=== PATIENT | female | born 1965 | race Caucasian/White ===

== ENCOUNTER 2023-10-17 07:55 | Outpatient (AMB) | payer BC, OTHER, SELFPAY ==
[2023-10-17 08:04] VITALS: BP 122/62; PULSE 80; O2SAT 98; BMI 24.8
--- NOTE | 2023-10-17 08:04 | A.OFFPC_ITS ---
Vital Signs 10/17/23 08:04 Height 5 ft 2.5 in Weight 138 lb BMI 24.8 BP 122/62 Blood Pressure Location Lt brachial Position Sitting Pulse 80 Pulse Source Pulse Oximeter Pulse Oximetry (%) 98 Oxygen Delivery Method Room Air Intake Visit Reasons: PE/Last seen with Tyrone, Peanut better allergy Allergies Bees Allergy (Unknown, Uncoded 10/17/23 08:15) Anaphylaxis Fluoride Allergy (Unknown, Uncoded 10/17/23 08:15) Rash Sulfa Allergy (Unknown, Uncoded 10/17/23 08:15) Anaphylaxis Medication List - Last Reconciled 10/17/23 by Zacarias Ha PA-C pregabalin (Lyrica) 300 mg PO BEDTIME Tobacco use date assessed: 10/17/23 Dental Screening Dental Screen Date: 10/17/23 Did you have a dental visit in the last 12 months?: Yes Did you have a dental problem in the last 6 months where you did not have access to dental care?: No Was dental information given to patient?: Patient has dentist HPI PE/Last seen with Tyrone HPI Details Patient is a 58-year-old female here today for an annual physical. This is the 1st time I am meeting this 58-year-old female with a past medical history significant for chronic cervical spine pain. Concern--> reports over the last few years having some issues with joint pains in her lower extremities though attributes this to a peanut butter allergy. Has stopped eating peanut butter and her symptoms have resolved completely. .. Cervical disc disease: She was involved in a work-related incident 2006 in [place] injuring her neck. She is status post multiple neck surgeries. She has been Lyrica 100 mg t.i.d. since 2007. She reports good pain relief with this medication. She was on worker's comp in [place] whom was managing and paying for the medication. She now needs PCP to manage the medication as she now lives in [place]. Former smoker: Quit smoking in 1999, she reports smoking for 20 years. She is interested in lung cancer screening Mammogram: declines any further mammograms, does her own home self-breast exams. 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 Colon cancer screening: Did cologaurd guard in 2019 which was negative, she is willing to repeat Cologuard Vaccines: Up-to-date with tetanus vaccine, declines flu, COVID, shingles, pneumonia, PFSH Surgical History History of kidney surgery History of carpal tunnel surgery H/O neck surgery Social History (Updated 10/17/23 @ 08:24 by Zacarias Ha PA-C) Housing: House Alcohol intake: current Alcohol intake frequency: holidays/special occasions only Alcohol type: beer Patient Tobacco Use Status: Former Tobacco user Quit Date: 1999 Tobacco use type: Cigarette Years Smoked: pt states former tobacco user 20 yrs ago, current marijuanna use e-Cigarette/Vaping Use: Never Used Second Hand Smoke Exposure: Yes Substance Use Type: Marijuana service: No Current occupational status: retired Current occupation: [employer]- injury Cognitive needs: No Hearing needs: No Vision needs: No Questionnaire PHQ-9 Over the last 2 weeks, how often have you been bothered by any of the following problems? 1. Little interest or pleasure in doing things: not at all 2. Feeling down, depressed, or hopeless: not at all 3. Trouble falling or staying asleep, or sleeping too much: not at all 4. Feeling tired or having little energy: not at all 5. Poor appetite or overeating: not at all 6. Feeling bad about yourself - or that you are a failure or have let yourself or your family down: not at all 7. Trouble concentrating on things, such as reading the newspaper or watching television: not at all 8. Moving or speaking so slowly that other people could have noticed. Or the opposite - being so fidgety or restless that you have been moving around a lot more than usual: not at all 9. Thoughts that you would be better off or of hurting yourself in some way: not at all Total score: 0 Depression Screening Interpretation: Negative Depression Screening Done: Yes 13125 - PHQ-9 Billing: Yes Source: Developed by Drs. Avi Pulliam, Ni Espana, Don Bates and colleagues, with an educational guy from [employer]. Thrive Questionnaire Date Thrive assessed: 10/17/23 I am a: Patient What is your living situation today?: I have a steady place to live Within the past 12 months, did the food you bought not last and you didn't have the money to get more?: Never true Within the past 12 months, did you worry whether your food would run out before you got money to buy more?: Never true Do you have trouble paying for medicines?: No Do you have trouble getting transportation to medical appointments?: No Do you have trouble paying your heating and electricity bill?: No Do you have trouble taking care of your child, family member or friend?: No Do you have trouble with day-to-day activities such as bathing, preparing meals, shopping, managing finances, etc.?: No Are you currently unemployed and looking for a job?: No Are you interested in more education?: No Currently or been in a relationship where the following occur: no concerns reported THRIVE Score: 0 AUDIT C Alcohol Use Questionnaire (AUDIT-C) 1. How often do you have a drink containing alcohol?: 2-3 times a week 2. How many drinks containing alcohol do you have on a typical day when you are drinking?: 3 or 4 3. How often do you have six or more drinks on one occasion?: Never Total Score: 4 Score Reviewed/Action Taken: No LUIZ-7 AMB Questionnaire LUIZ-7 Date LUIZ - 7 assessed: 10/17/23 Feeling nervous, anxious, or on edge: 0 = Not at all Not being able to stop or control worryin = Not at all Worrying too much about different things: 0 = Not at all Trouble relaxin = Not at all Being so restless that it is hard to sit still: 0 = Not at all Becoming easily annoyed or irritable: 0 = Not at all Feeling afraid as if something awful might happen: 0 = Not at all Total LUIZ-7 score (0-4 normal; 5-9 mild; 10-14 moderate; 15-21 severe): 0 Source: Developed by Drs. Avi Pulliam, Ni Espana, Don Bates and colleagues, with an educational guy from [employer]. LUIZ-7 Assessment Billing LUIZ-7 Assessment Tool: LUIZ-7 Assessment 64085 Review of Systems Const Denies body aches, Denies chills, Denies excessive sweating, Denies fatigue, Denies fever(s) and Denies headache(s) Eyes Denies blurry vision ENT Denies dysphagia, Denies vertigo, Denies dizziness, Denies headache(s), Denies hearing loss and Denies tinnitus Card Denies chest pain, Denies chest pain with activity, Denies syncope, Denies irregular heart rhythm and Denies dyspnea Resp Denies chest congestion, Denies cough, Denies hemoptysis, Denies dyspnea and Denies wheezing GI Denies abdominal pain, Denies melena, Denies hematochezia, Denies coffee ground emesis, Denies dysphagia, Denies diarrhea, Denies nausea and Denies vomiting Denies urinary frequency, Denies dysuria, Denies urinary hesitancy and Denies urinary urgency Musc Denies arthralgias, Denies limited range of motion, Denies muscle cramps and Denies muscle weakness Skin/Breast Denies rash and Denies skin ulcer Neuro Denies Abnormal speech present, Denies confusion, Denies vertigo, Denies dizziness, Denies syncope, Denies headache(s), Denies memory loss and Denies seizure-like activity Psych Denies anxiety, Denies confusion, Denies depression, Denies memory loss, Denies panic attacks and Denies paranoia Endo Denies excessive sweating, Denies fatigue, Denies flushing, Denies polydipsia and Denies polyuria Aller/Immun Denies wheezing Physical exam (Primary Care) Vital Signs: Last Vital Signs Pulse 80 10/17/23 08:04 BP 122/62 10/17/23 08:04 Pulse Ox 98 10/17/23 08:04 Oxygen Delivery Method Room Air 10/17/23 08:04 BMI result Body Mass Index 24.8 Tobacco/Smoking Status: Tobacco use Status Tobacco use date assessed 10/17/23 10/17/23 08:11 Patient Tobacco Use Status Former Tobacco user 10/17/23 08:11 Tobacco use type Cigarette 10/17/23 08:11 e-Cigarette/Vaping Use Never Used 10/17/23 08:11 PHQ-9: PHQ-9 Score PHQ-9: Total score 0 10/17/23 08:11 Depression Screening Interpretation: Negative Thrive Assessment: Date of Thrive Assessment Date Thrive assessed 10/17/23 10/17/23 08:11 Currently or been in a relationship where the following occur: no concerns reported Const General: cooperative, comfortable, no acute distress, alert and awake; No confusion Orientation/consciousness: oriented to person, oriented to place, patient oriented x3 and No confusion HENMT Head: Yes normocephalic Ears: external ears normal and TM's normal bilaterally Face and sinus: No sinus tenderness Mouth: Normal oral and palatal mucosa present and tongue normal Teeth and gingiva: dentition normal and gingiva normal Throat: Yes posterior oropharynx normal, Yes tonsils normal and Yes uvula midline Eyes Conjunctivae: conjunctivae normal Sclerae: sclerae normal Pupils: Equal, round and reactive pupils present EOM: EOMs intact bilaterally Direct Ophthalmoscopy: No no photophobia Neck Neck: Yes no lymphadenopathy, No tender and Yes no JVD Thyroid: Thyroid normal Carotids: no bruits Chest Chest palpation & inspection: no tenderness Resp Effort & Inspection: normal respiratory effort, no audible wheezes, not labored and no stridor Auscultation: no crackles, no rales, no rhonchi and no wheezes Cardio Jugular venous distension: no JVD Rate: regular rate, not bradycardic and not tachycardic Rhythm: regular rhythm Bruits: no carotid bruits Peripheral pulses: Peripheral pulses 2+ throughout GI Inspection: Yes normal to inspection, No abdominal wall ecchymosis and No visible herniation Palpation (GI): Soft to palpation, nontender, no guarding, not rigid and No hepatosplenomegaly present Auscultation: normoactive bowel sounds General: Yes no CVA tenderness Back/Spine/Pelvis Back: no CVA tenderness and No back tenderness Cervical Spine: cervical ROM normal Thoracic/Lumbar Spine: thoracic and lumbar spine normal to inspection, straight leg raise negative bilaterally, No thoraco-lumbar ROM limited and No lumbar spinal tenderness Skin Lesions: no lesions Rashes: no rashes Wounds: no wounds Neuro General: oriented to person, oriented to place, patient oriented x3, CN's II-XI intact bilaterally and No confusion Cranial nerves: Yes Equal, round and reactive pupils present and Yes Normal accommodation reflex present Cognition (Neuro): normal cognition Speech: No Abnormal speech present Gait exam (Neuro): Normal gait present Motor exam (neuro): 5/5 motor strength present throughout Extrem Right upper extremity: full ROM; no cyanosis Left upper extremity: full ROM; no cyanosis Right lower extremity: no edema Left lower extremity: no edema Psych Appearance: grossly normal Mental Status: mental status grossly normal Affect: normal affect Attitude: cooperative Thought process: Normal thought process present Assessment and Plan Assessment & Plan (1) Adult general medical exam: Code(s): Z00.00 - Encounter for general adult medical examination without abnormal findings (2) Cervical spine disease: Code(s): M48.9 - Spondylopathy, unspecified Plan: Cervical disc disease with status post multiple surgeries from work-related injury in 2006 in [place]. Continues on Lyrica 300 mg daily since 2007. (3) Colonoscopy refused: Code(s): Z53.20 - Procedure and treatment not carried out because of patient's decision for unspecified reasons Plan: Willing to do Cologuard (4) Screening for diabetes mellitus (DM): Code(s): Z13.1 - Encounter for screening for diabetes mellitus (5) History of smoking: Code(s): Z87.891 - Personal history of nicotine dependence Plan: As per HPI was a smoker for 20 years. Quit smoking nearly 20 years ago. She would like lung cancer screening Orders: Orders Comprehensive [place]. Panel Fast Today Z13.1 - Encounter for screening for diabetes mellitus Referrals Thoracic Surgery Referral Z87.891 - Personal history of nicotine dependence Cologuard Test Z12.11 - Encounter for screening for malignant neoplasm of colon, Z87.891 - Personal history of nicotine dependence Medications: Changed From pregabalin (Lyrica) 100 mg PO Q8H M48.9 - Spondylopathy, unspecified To pregabalin (Lyrica) 100 mg PO Q8H 90 days 270 caps 1RF M48.9 - Spondylopathy, unspecified Coding Level of Care Code Est Pt Prev Care 40-64y(85977) Diagnoses Adult general medical exam Z00.00 Cervical spine disease M48.9 Colonoscopy refused Z53.20 Screening for diabetes mellitus (DM) Z13.1 History of smoking Z87.891 Additional Codes LUIZ-7 Assessment Billing - LUIZ-7 Assessment Tool: LUIZ-7 Assessment 06366 ([id number])
== END 2023-10-17 08:39 | disposition home or self-care (01) ==
PROVIDERS: Visit Provider Physician Assistant
DX: Z00.00 Encounter for general adult medical examination without abnormal findings (principal); M48.9 Spondylopathy, unspecified; Z53.20 Procedure and treatment not carried out because of patient's decision for unspecified reasons; Z13.1 Encounter for screening for diabetes mellitus; Z87.891 Personal history of nicotine dependence
CPT/HCPCS: 99396

== ENCOUNTER 2023-11-24 10:19 | Outpatient (AMB) | payer BC, OTHER, MEDICAID, SELFPAY ==
--- NOTE | 2023-11-24 10:32 | MHC.OFFVIS ---
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 No complaints. Last Pap/HPV was many years ago Last Mammogram was many years ago No previous screening colonoscopy PFSH Surgical History History of kidney surgery History of carpal tunnel surgery H/O neck surgery Social History Housing: House Alcohol intake: current Alcohol intake frequency: holidays/special occasions only Alcohol type: beer Patient Tobacco Use Status: Former Tobacco user Quit Date: 1999 Tobacco use type: Cigarette Years Smoked: pt states former tobacco user 20 yrs ago, current marijuanna use e-Cigarette/Vaping Use: Never Used Second Hand Smoke Exposure: Yes Substance Use Type: Marijuana Patient : No service: No Current occupational status: retired Current occupation: [employer]- injury Cognitive needs: No Hearing needs: No Vision needs: No Female Reproductive History Menstrual Age of Menarche: 14 Duration of menses: 3-5 days Age of menopause: 45 Total pregnancies: 1 Full term: 1 Number of Living Children: 1 History of STI: No Review of Systems Const All systems reviewed & are unremarkable except as noted in HPI and below Card Reports as per HPI Resp Reports as per HPI GI Reports as per HPI and Reports no additional complaints Reports as per HPI Physical Exam Const General: cooperative, healthy appearing and comfortable Chest Chest palpation & inspection: normal inspection of the chest and normal palpation of entire chest wall Breast/axilla inspection: normal inspection of the breasts and normal inspection of the axillae Breast/axilla palpation: normal palpation of the breasts, normal palpation of the axillae and no axillary lymphadenopathy Resp Effort & Inspection: normal respiratory effort Auscultation: clear to auscultation bilaterally Percussion: percussion normal Cardio Palpation: normal PMI Rate: regular rate Rhythm: regular rhythm Heart sounds: no murmurs and no rubs Peripheral pulses: Peripheral pulses 2+ throughout GI Inspection: Yes normal to inspection Palpation (GI): Soft to palpation, nontender, no guarding, not rigid and No hepatosplenomegaly present Percussion: Yes normal to percussion Auscultation: normal bowel sounds Rectal Exam - Female: deferred General: Yes bladder normal to palpation External Female Exam: No lesion Speculum Exam - Vagina: normal appearance of the vagina, normal palpation, normal vaginal discharge and not erythematous Speculum Exam - Cervix: normal appearance of the cervix and normal palpation Bimanual exam- vagina & uterus: normal bimanual exam, normal palpation, uterine size normal, bladder normal to palpation, consistency normal and normal palpation Bimanual Exam- Adnexa, other: normal adnexae, no masses and no tenderness Assessment & Plan Assessment & Plan (1) Well woman exam: Code(s): Z01.419 - Encounter for gynecological examination (general) (routine) without abnormal findings Plan: Co testing done. Counseled the patient about the recommended dietary allowance of 1200 mg of Calcium & 600 IU of vitamin D. Screening mammogram recommended, discussed with the patient the benefits, sensitivity, specificity and false-positive false-negative rate of screening mammogram and it is impact on early detection, prognosis and decrease in mortality from breast cancer, the patient verbalized understanding, does not want a mammogram order placed and would like to think about it. Instructions given the patient to call and schedule screening mammogram. The patient was referred to GI for screening colonoscopy . The patient was instructed to perform monthly self-breast exams and schedule annual exam in a year. All questions answered and the patient verbalized understanding. Orders: Referrals Gastroenterology Referral Z12.11 - Encounter for screening for malignant neoplasm of colon Coding Level of Care Code New Pt Prev Care 40-64y(74247) Diagnoses Well woman exam Z01.419
[2023-11-24 10:35] VITALS: BP 120/82; BMI 28.0
== END 2023-11-24 11:24 | disposition home or self-care (01) ==
PROVIDERS: PCP Physician Assistant; Visit Provider Obstetrics & Gynecology
DX: Z01.419 Encounter for gynecological examination (general) (routine) without abnormal findings (principal)
CPT/HCPCS: 99386

== ENCOUNTER 2023-11-24 10:19 | Outpatient (REF) | payer BC, OTHER, MEDICAID, SELFPAY ==
[2023-11-29 12:38] LABS: HPV mRNA E6/E7 rflx Not Detected (Not Detected)
== END 2023-11-24 10:20 | disposition home or self-care (01) ==
LOC: HO.LNP 10:19
PROVIDERS: PCP Physician Assistant; Visit Provider Obstetrics & Gynecology
DX: Z01.419 Encounter for gynecological examination (general) (routine) without abnormal findings (principal); Z11.51 Encounter for screening for human papillomavirus (HPV)
CPT/HCPCS: 87624; 88142

== ENCOUNTER 2024-02-09 08:06 | Outpatient (AMB) | payer BC, OTHER, SELFPAY ==
--- NOTE | 2024-02-09 08:14 | MHC.OFFVIS ---
Vital Signs 02/09/24 08:22 Height 5 ft 2 in Weight 131 lb 13.383 oz BMI 24.1 BP 112/54 L Blood Pressure Location Lt brachial Position Sitting Pulse 76 Pulse Source Pulse Oximeter Pulse Oximetry (%) 97 Oxygen Delivery Method Room Air Intake Visit Reasons: positive Cologuard test Intake Note: Marce presents in office today for an initial visit. CC; PCP referred pt to GI for positive cologuard test. Pt denies any sx or additional significant concerns at this time. Tree Doctor Required: No Allergies Peanut Butter Allergy (Unknown, Verified 02/09/24 08:21) Anaphylaxis Bees Allergy (Unknown, Uncoded 11/24/23 10:32) Anaphylaxis Fluoride Allergy (Unknown, Uncoded 11/24/23 10:32) Rash Sulfa Allergy (Unknown, Uncoded 11/24/23 10:32) Anaphylaxis HPI HPI positive Cologuard test: Details: 58-year-old female here for preprocedural meeting to discuss a screening colonoscopy in the context of a positive Cologuard. She is referred by Zacarias Ha Cervical degenerative disc disease Gout History of smoking * SURGICAL HISTORY Kidney surgery Carpal tunnel surgery - B Anterior/posterior discectomy C4-T1 C section * ALLERGIES Sulfa Fluoride Bees Peanut butter swelling * Config ConsultantsTECH LABS: none TODAY'S VISIT This is first colonoscopy. She denies any bowel or upper GI problems. There are no prior problems with anesthesia or sedation. She denies any cardiac or respiratory problems.. No ID problems. No known FHX crc or polyps. [facility] Medical History (Updated 02/09/24 @ 17:03 by MIGUEL Alanis) Well woman exam Adult general medical exam Colonoscopy refused Cervical cancer screening Cervical spine instability Surgical History (Updated 02/09/24 @ 17:03 by MIGUEL Alanis) History of section History of kidney surgery History of carpal tunnel surgery H/O neck surgery Social History Housing: House Alcohol intake: current Alcohol intake frequency: holidays/special occasions only Alcohol type: beer Patient Tobacco Use Status: Former Tobacco user Tobacco use type: Cigarette Years Smoked: pt states former tobacco user 20 yrs ago, current marijuanna use e-Cigarette/Vaping Use: Never Used Second Hand Smoke Exposure: Yes Substance Use Type: Marijuana service: No Current occupational status: retired Current occupation: [employer]- injury Cognitive needs: No Hearing needs: No Vision needs: No Female Reproductive History Menstrual Age of Menarche: 14 Review of Systems Const Denies fatigue, Denies fever(s), Denies night sweats, Denies poor appetite and Denies weight loss ENT Reports Normal hearing present, Denies dental pain, Denies dysphagia, Denies hearing loss, Denies mouth pain, Denies odynophagia, Denies throat swelling, Denies tongue swelling and Reports other (Dentition adequate) Card Reports no additional complaints Resp Reports no additional complaints GI Details: Denies abdominal pain, Denies melena, Denies bloating, Denies hematochezia, Denies constipation, Denies GI cramping, Denies dysphagia, Denies excessive flatus, Denies early satiety, Denies heartburn, Denies diarrhea, Denies nausea, Denies odynophagia, Denies vomiting and Denies hematemesis Skin/Breast Denies pruritus, Denies lesions, Denies rash and Denies jaundice Neuro Reports Normal hearing present and Denies Abnormal speech present Endo Denies fatigue Aller/Immun Denies throat swelling and Denies tongue swelling Physical Exam Vital Signs: Last Vital Signs Pulse 76 02/09/24 08:22 BP 112/54 L 02/09/24 08:22 Pulse Ox 97 02/09/24 08:22 Oxygen Delivery Method Room Air 02/09/24 08:22 BMI result Body Mass Index 24.1 Const General: cooperative, no acute distress, well developed and well groomed Nutritional Appearance: average body habitus and well nourished Orientation/consciousness: oriented to person, oriented to place and oriented to time Limitations: No language barrier HEENT Head: Yes normocephalic and Yes atraumatic Eyes General: appearance normal, both eyes and all related structures Pupils: Equal, round and reactive pupils present Neck Neck: Yes normal visual inspection and Yes no lymphadenopathy Thyroid: Thyroid normal Resp Effort & Inspection: normal respiratory effort and able to speak in complete sentences Auscultation: clear to auscultation bilaterally Cardio Rate: regular rate Rhythm: regular rhythm Heart sounds: Normal, physiologic split S2 sound present Peripheral pulses: radial pulses present and posterior tibial pulses present GI Inspection: No distended and No Abdominal panniculus present Palpation (GI): Soft to palpation, nontender, no guarding, not rigid and No hepatosplenomegaly present Percussion: Yes normal to percussion Auscultation: normal bowel sounds Rectal Exam - Female: deferred Abdomen image: 1. surgical scar Skin General skin exam: no rashes or lesions noted, turgor normal, skin not dry, no jaundice, No spider nevi and no striae Rashes: no rashes Nails: normal Neuro General: oriented to person, oriented to place and oriented to time Cranial nerves: Yes Equal, round and reactive pupils present and Yes Normal hearing present Speech: No Abnormal speech present Extrem General: Yes normal to inspection, No clubbing, No cyanosis and No edema Psych Appearance: grossly normal and well kempt Mental Status: mental status grossly normal Speech and movement: Normal speech and movement present Affect: normal affect Attitude: cooperative Thought process: Normal thought process present and not confabulating Thought content: Normal thought content present Insight: Good insight present (Psych) Judgement: Good judgement present (Psych) Assessment & Plan Assessment & Plan (1) Positive colorectal cancer screening using Cologuard test: Code(s): R19.5 - Other fecal abnormalities Category: Medical (2) Pre-op examination: Code(s): Z01.818 - Encounter for other preprocedural examination Category: Medical Plan This is first colonoscopy. She denies any bowel or upper GI problems. There are no prior problems with anesthesia or sedation. She denies any cardiac or respiratory problems.. No ID problems. No known FHX crc or polyps. Orders: Orders Comprehensive Met. Panel Today R19.5 - Other fecal abnormalities, Z01.818 - Encounter for other preprocedural examination Colonoscopy - GI Use Only Today R19.5 - Other fecal abnormalities, Z01.818 - Encounter for other preprocedural examination Complete Blood Count Auto Diff Today R19.5 - Other fecal abnormalities, Z01.818 - Encounter for other preprocedural examination Coding Level of Care Code New Pt Level 3 (58886) Diagnoses Positive colorectal cancer screening using Cologuard test R19.5 Pre-op examination Z01.818
[2024-02-09 08:22] VITALS: BP 112/54; PULSE 76; O2SAT 97; BMI 24.1
== END 2024-02-09 08:44 | disposition home or self-care (01) ==
PROVIDERS: PCP Physician Assistant; Visit Provider Nurse Practitioner
DX: R19.5 Other fecal abnormalities (principal); Z01.818 Encounter for other preprocedural examination
CPT/HCPCS: 99203

== ENCOUNTER 2024-02-09 08:06 | Outpatient (REF) | payer BC, OTHER, SELFPAY ==
[2024-02-09 09:43] LABS: Eosinophils Absolute Auto 0.1 X10*3/uL (0.0-0.4); Eosinophils Percent Auto 2.1 % (0-4); Hematocrit 33.6 % (37.0-47.0); Hemoglobin 11.9 g/dl (12.0-16.0); Imm Gran Abs Auto 0.02 X10*3/uL (0.00-0.03); Imm Gran Pct Auto 0.4 % (0.0-0.4); Lymphocytes Absolute Auto 0.8 X10*3/uL (1.2-4.9); Lymphocytes Percent Auto 16.9 % (20-40); MANUAL DIFF FLAG SCAN; Mean Corpuscular HGB Conc 35.4 g/dl (31.0-35.0); Mean Corpuscular Hemoglobin 31.8 pg (27.0-33.0); Mean Corpuscular Volume 89.8 fL (80.0-98.0); Mean Platelet Volume 9.7 fL (9.4-12.3); Monocytes Absolute Auto 1.3 X10*3/uL (0.1-1.2); Monocytes Percent Auto 26.1 % (2-11); Neutrophils Absolute Auto 2.7 x10*3/uL (2.0-8.3); Neutrophils Percent Auto 54.5 % (45-73); Platelet Count 144 X10*3/uL (160-400); Red Blood Count 3.74 X10*6/uL (4.20-5.50); SCAN SMEAR FLAG 1; White Blood Count 4.9 X10*3/uL (4.8-10.8)
[2024-02-09 10:19] LABS: Alanine Aminotransferase 32 U/L (0-31); Albumin Level 4.2 g/dL (3.5-5.0); Alkaline Phosphatase 191 U/L (39-117); Anion Gap 11 (12-20); Aspartate Amino Transferase 62 U/L (5-31); Bilirubin Total 0.7 mg/dL (0.0-1.0); Blood Urea Nitrogen 5 mg/dL (9-16); Calcium 9.6 mg/dL (8.4-10.2); Carbon Dioxide 25 mmol/L (22-29); Chloride 94 mmol/L (96-108); Estimated Glomerular Filt Rate > 60; Glucose Random 95 mg/dL (60-115); Potassium 4.7 mmol/L (3.3-5.1); Sodium 125 mmol/L (135-145)
[2024-02-09 10:36] LABS: SLIDE REVIEW VERIFIED
== END 2024-02-09 08:07 | disposition home or self-care (01) ==
LOC: HO.LAB 08:06
PROVIDERS: PCP Physician Assistant; Visit Provider Nurse Practitioner
DX: Z01.818 Encounter for other preprocedural examination (principal); R19.5 Other fecal abnormalities
CPT/HCPCS: 36415; 80053; 85025

== ENCOUNTER 2024-06-14 08:50 | Outpatient (AMB) | payer BC, OTHER, SELFPAY ==
--- NOTE | 2024-06-14 08:55 | MHC.PC.OV ---
Vital Signs 06/14/24 08:56 Height 5 ft 2 in Weight 126 lb 8 oz BMI 23.1 BP 136/66 Blood Pressure Location Lt brachial Position Sitting Pulse 78 Pulse Source Pulse Oximeter Pulse Oximetry (%) 95 Oxygen Delivery Method Room Air Intake Visit Reasons: f/u cervical spine issue Intake Note: Patient is here to follow up on Cervical spine issues. Requesting for epi-pen for Bee allergy. Pt decline flu shot today. Switchboard Clerk Required: No Digital Asset Specialist: Not Required per policy Accompanied by: Self / Same As Patient Allergies Peanut Butter Allergy (Unknown, Verified 06/14/24 09:01) Anaphylaxis Bees Allergy (Unknown, Uncoded 06/14/24 09:01) Anaphylaxis Fluoride Allergy (Unknown, Uncoded 06/14/24 09:01) Rash Sulfa Allergy (Unknown, Uncoded 06/14/24 09:01) Anaphylaxis Medication List - Last Reconciled 06/14/24 by Zacarias Ha PA-C pregabalin (Lyrica) 100 mg PO Q8H 90 days sod sulf-pot chloride-mag sulf 1.479-0.188- 0.225 gram (Sutab) PO PER PKG DIR for colonoscopy prep Tobacco use date assessed: 06/14/24 Dental Screening Dental Screen Date: 10/17/23 HPI f/u cervical spine issue HPI Details Patient is a 58-year-old female here today for a follow-up visit. This is the 2nd time I am meeting this 58-year-old female with a past medical history significant for chronic cervical spine pain. Concern--> reports over the last few years having some issues with joint pains in her lower extremities though attributes this to a peanut butter allergy. Has stopped eating peanut butter and her symptoms have resolved completely. She does report having an anaphylactic reaction to bee stings in his interested in getting an EpiPen to have for emergencies .. Cervical disc disease: She was involved in a work-related incident 2006 in [place] injuring her neck. She is status post multiple neck surgeries. She has been Lyrica 100 mg t.i.d. since 2007. She reports good pain relief with this medication. She was on [employer] in [place] whom was managing and paying for the medication. He continues on Lyrica 100 mg b.i.d. with good effect on reducing her pain. Former smoker: Quit smoking in 1999, she reports smoking for 20 years. She is interested in lung cancer screening. Positive Cologuard- patient now followed by [facility] in his due for a colonoscopy this month. [facility] Medical History (Updated 06/14/24 @ 11:04 by Zacarias Ha PA-C) Well woman exam Adult general medical exam Colonoscopy refused Cervical cancer screening Cervical spine instability Surgical History History of section History of kidney surgery History of carpal tunnel surgery H/O neck surgery Social History Housing: House Alcohol intake: current Alcohol intake frequency: holidays/special occasions only Alcohol type: beer Patient Tobacco Use Status: Former Tobacco user Tobacco use type: Cigarette Years Smoked: pt states former tobacco user 20 yrs ago, current marijuanna use e-Cigarette/Vaping Use: Never Used Second Hand Smoke Exposure: Yes Substance Use Type: Marijuana service: No Current occupational status: retired Current occupation: [employer]- injury Cognitive needs: No Hearing needs: No Vision needs: No Female Reproductive History Menstrual Age of Menarche: 14 Questionnaire Thrive Questionnaire Date Thrive assessed: 10/17/23 Are you currently unemployed and looking for a job?: I choose not to answer this question LUIZ-7 AMB Questionnaire LUIZ-7 Date LUIZ - 7 assessed: 10/17/23 Source: Developed by Drs. Avi Pulliam, Ni Espana, Don Bates and colleagues, with an educational guy from [employer]. Review of Systems Const Denies headache(s) Eyes Denies loss of vision ENT Denies vertigo, Denies dizziness, Denies headache(s) and Denies sore throat Card Denies chest pain, Denies leg edema and Denies lightheadedness Resp Denies cough, Denies hemoptysis and Denies wheezing GI Denies abdominal pain, Denies melena, Denies constipation, Denies diarrhea and Denies vomiting Denies urinary frequency, Denies dysuria and Denies urinary urgency Musc Denies arthralgias, Denies joint swelling, Denies numbness and Denies tingling Neuro Denies Abnormal speech present, Denies behavioral changes, Denies vertigo, Denies dizziness, Denies headache(s), Denies loss of vision, Denies memory loss, Denies numbness and Denies tingling Psych Denies anxiety, Denies behavioral changes, Denies depression, Denies memory loss and Denies panic attacks Mohsen/Lymph Denies easy bleeding and Denies easy bruising Aller/Immun Denies wheezing Physical exam (Primary Care) Vital Signs: Last Vital Signs Pulse 78 06/14/24 08:56 BP 136/66 06/14/24 08:56 Pulse Ox 95 06/14/24 08:56 Oxygen Delivery Method Room Air 06/14/24 08:56 BMI result Body Mass Index 23.1 Tobacco/Smoking Status: Tobacco use Status Tobacco use date assessed 06/14/24 06/14/24 09:00 Patient Tobacco Use Status Former Tobacco user 06/14/24 09:00 Tobacco use type Cigarette 06/14/24 09:00 e-Cigarette/Vaping Use Never Used 06/14/24 09:00 Thrive Assessment: Date of Thrive Assessment Date Thrive assessed 10/17/23 06/14/24 09:00 Const General: healthy appearing, no acute distress, alert and awake Nutritional Appearance: well nourished Orientation/consciousness: oriented to person, oriented to place and oriented to time HENMT Ears: TM's normal bilaterally General nose exam: Normal nasal mucous membranes and turbinates present Eyes Conjunctivae: conjunctivae normal Sclerae: sclerae normal Pupils: Equal, round and reactive pupils present Neck Neck: Yes no lymphadenopathy and Yes no JVD Thyroid: Thyroid normal Carotids: no bruits Resp Effort & Inspection: normal respiratory effort and not tachypneic Auscultation: no crackles, no rales, no rhonchi and no wheezes Cardio Rate: regular rate Rhythm: regular rhythm Heart sounds: no murmurs and normal S1 and S2 GI Palpation (GI): Soft to palpation, nontender, no hepatomegaly and no splenomegaly Auscultation: normal bowel sounds Skin General skin exam: no rashes or lesions noted and dry skin Neuro General: oriented to person, oriented to place and oriented to time Cranial nerves: Yes Equal, round and reactive pupils present Speech: No Abnormal speech present Gait exam (Neuro): Normal gait present Motor exam (neuro): no tremor noted Extrem Right upper extremity: full ROM Left upper extremity: full ROM Right lower extremity: full ROM; no edema Left lower extremity: full ROM; no edema Psych Mental Status: mental status grossly normal Speech and movement: Normal speech and movement present Affect: normal affect Attitude: cooperative Thought process: Normal thought process present Coding Level of Care Code Est Pt Level 4 (51457) Diagnoses Cervical disc disorder M50.90 Elevated liver enzymes R74.8 Positive colorectal cancer screening using Cologuard test R19.5 Anemia due to other cause, not classified D64.89 Anemia type: other cause Other causes of anemia: other cause, not classified Anaphylaxis, sequela T78.2XXS Encounter type: sequela Assessment & Plan Assessment & Plan (1) Cervical disc disorder: Code(s): M50.90 - Cervical disc disorder, unspecified, unspecified cervical region Category: Medical Plan: Patient reports her pain is well controlled with current dose of Lyrica. Will continue to follow q.6 months. (2) Elevated liver enzymes: Code(s): R74.8 - Abnormal levels of other serum enzymes Category: Medical Plan: Most recent labs showing slightly elevated liver enzymes. She reports she did have liver disease in the past and found out she had a peanut allergy. Will consider ultrasound liver if liver enzymes continue to remain elevated. (3) Positive colorectal cancer screening using Cologuard test: Code(s): R19.5 - Other fecal abnormalities Category: Medical Plan: Patient now followed by gastroenterology. She is due for colonoscopy this month. (4) Anemia: Code(s): D64.9 - Anemia, unspecified Category: Medical Qualifiers: Anemia type: other cause Other causes of anemia: other cause, not classified Qualified Code(s): D64.89 - Other specified anemias Plan: Noted slight anemia on most recent labs. Of note patient does have 1 functioning kidney. Will check iron, B12 folate. 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 She would like an EpiPen in case of a anaphylactic emergency. Orders: Orders Comprehensive [facility]. Panel Fast Today Z13.1 - Encounter for screening for diabetes mellitus Vitamin B12 and Folate Today D64.9 - Anemia, unspecified, E53.8 - Deficiency of other specified B group vitamins Complete Blood Count no Diff Today D64.9 - Anemia, unspecified IRON PROFILE Today D50.9 - Iron deficiency anemia, unspecified, D64.9 - Anemia, unspecified Medications: New epinephrine (EpiPen 2-Tushar) for 2 doses 0.3 mg (0.3 mL) IM ONCE PRN 2 ea 0RF anaphylaxis 30 days T78.2XXS - Anaphylactic shock, unspecified, sequela Refilled pregabalin (Lyrica) 100 mg PO Q8H 270 caps 1RF 90 days M48.9 - Spondylopathy, unspecified
[2024-06-14 08:56] VITALS: BP 136/66; PULSE 78; O2SAT 95; BMI 23.1
== END 2024-06-14 09:18 | disposition home or self-care (01) ==
PROVIDERS: PCP Physician Assistant; Visit Provider Physician Assistant
DX: M50.90 Cervical disc disorder, unspecified, unspecified cervical region (principal); R74.8 Abnormal levels of other serum enzymes; R19.5 Other fecal abnormalities; D64.89 Other specified anemias; T78.2XXS Anaphylactic shock, unspecified, sequela

== ENCOUNTER → 2024-06-14 08:50 | Outpatient (BNVA) | payer BC, OTHER, SELFPAY | PROVIDERS: PCP Physician Assistant; Visit Provider Physician Assistant ==

== ENCOUNTER 2024-06-27 08:00 | Outpatient (REF) | payer BC, MEDICARE, SELFPAY ==
[2024-06-27 09:46] LABS: Anion Gap 12 (12-20); Carbon Dioxide 26 mmol/L (22-29); Chloride 97 mmol/L (96-108); Potassium 4.2 mmol/L (3.3-5.1); Sodium 131 mmol/L (135-145)
== END 2024-06-27 08:01 | disposition home or self-care (01) ==
LOC: HO.LAB 08:00
PROVIDERS: Absent Provider Physician Assistant; PCP Physician Assistant; Visit Provider Nurse Practitioner
DX: E87.1 Hypo-osmolality and hyponatremia (principal)
CPT/HCPCS: 36415; 80051

== ENCOUNTER 2024-06-28 08:57 | Day surgery (SDC) | payer BC, MEDICARE, SELFPAY ==
[2024-06-26 14:29] VITALS: BMI 24.1
--- NOTE | 2024-06-27 08:43 | P.CONAN_ITS ---
Documented by User: Jennifer Mccann NP 06/27/24 11:52 HPI - Anesthesia Eval Consult details Narrative: 58yo F for Colonoscopy Pt with low Na @ 125. Not addressed by ordering GI provider until 06/26/24. Pt to have repeat labs 06/27/24. Per pt, no hx of low Na. Hx of kidney surgery as child. Repeat Na 131 PMFSH Active Problems Active Problems: All Active Problems Hyponatremia (Acute) Anaphylactic reaction (Acute) Anemia (Acute) Elevated liver enzymes (Acute) Pre-op examination (Acute) Positive colorectal cancer screening using Cologuard test (Acute) Screening for diabetes mellitus (DM) (Acute) Cervical spine disease (Acute) History of smoking (Acute) Cervical disc disorder (Acute) Gout (Acute) Past Medical History Medical History Asthma Positive colorectal cancer screening using Cologuard test Nonfunctioning kidney Gout Anemia Cervical spine instability Surgical History Surgical History History of section History of kidney surgery History of carpal tunnel surgery H/O neck surgery Social History Social History Housing: House Alcohol intake: current Alcohol intake frequency: holidays/special occasions on ly Alcohol type: beer Patient Tobacco Use Status: Former Tobacco user Tobacco use type: Cigarette Years Smoked: pt states former tobacco user 20 yrs ago, current marijuanna use e-Cigarette/Vaping Use: Never Used Second Hand Smoke Exposure: Yes Use of substances other than those prescribed or required for medical reasons: Yes Substance Use Type: Marijuana Substance Use Type Other:: last used 06/27 Substance Use Frequency: Occasionally Are you DNR?: No Advance Directives: No Advance Directives Information Provided: Yes Recently lost weight without trying: No service: No Current occupational status: retired Current occupation: [employer]- injury Cognitive needs: No Hearing needs: No Vision needs: No Meds Allergies Allergy/AdvReac Type Severity Reaction Status Date / Time bee pollen [bee stings] Allergy Severe Anaphylaxis Verified 06/28/24 09:56 Peanut Butter Allergy Severe Anaphylaxis Verified 06/28/24 09:56 Sulfa (Sulfonamide Allergy Severe Anaphylaxis Verified 06/28/24 09:56 Antibiotics) fluoride Allergy Intermediate Rash Verified 06/28/24 09:56 Exam Height,Weight and Vital Signs: Height 5 ft 2 in Weight 59.874 kg Pertinent Lab Results Pertinent Lab Results: Laboratory Tests 02/09/24 06/27/24 09:15 08:34 WBC 4.9 Hgb 11.9 L Hct 33.6 L Plt Count 144 L Sodium 131 L Potassium 4.2 Chloride 97 Carbon Dioxide 26 BUN 5 L Creatinine 0.65 Assessment and Plan Assessment Anesthesia Assessment: Chart Reviewed Documented by User: Chasidy Zhu MD 06/28/24 12:10 PMFSH Past Medical History Medical History Asthma Positive colorectal cancer screening using Cologuard test Nonfunctioning kidney Gout Anemia Cervical spine instability Family History Family history of problems with anesthesia: No Surgical History Surgical History History of section History of kidney surgery History of carpal tunnel surgery H/O neck surgery History of Problems with Anesthesia: Yes Social History Social History Housing: House Alcohol intake: current Alcohol intake frequency: holidays/special occasions only Alcohol type: beer Patient Tobacco Use Status: Former Tobacco user Tobacco use type: Cigarette Years Smoked: pt states former tobacco user 20 yrs ago, current marijuanna use e-Cigarette/Vaping Use: Never Used Second Hand Smoke Exposure: Yes Use of substances other than those prescribed or required for medical reasons: Yes Substance Use Type: Marijuana Substance Use Type Other:: last used 06/27 Substance Use Frequency: Occasionally Are you DNR?: No Advance Directives: No Advance Directives Information Provided: Yes Recently lost weight without trying: No service: No Current occupational status: retired Current occupation: [employer]- injury Cognitive needs: No Hearing needs: No Vision needs: No Meds Allergies Allergy/AdvReac Type Severity Reaction Status Date / Time bee pollen [bee stings] Allergy Severe Anaphylaxis Verified 06/28/24 09:56 Peanut Butter Allergy Severe Anaphylaxis Verified 06/28/24 09:56 Sulfa (Sulfonamide Allergy Severe Anaphylaxis Verified 06/28/24 09:56 Antibiotics) fluoride Allergy Intermediate Rash Verified 06/28/24 09:56 Exam Airway Mallampati Class: II TM Dist: >3cm Neck ROM: Full Heart: rrr Lungs: cta Assessment and Plan Assessment Anesthesia Assessment: Anesthesia Plan Discussed Final Anesthetic Review Family History of Problems with Anesthesia: No History of Problems with Anesthesia: Yes NPO: Yes ASA Class: III Final Preanesthetic Review: No Changes in Pt Med Stat, Meds/Allgs Chart Reviewed, Consent Obtained/Reviewed and Anes Risks/Benef Reviewed Patient Risk: Intermediate Procedure Risk: Low Anesthetic Plan Anesthetic Plan: MAC: Disposition: Standard PACU
[2024-06-28 09:56] VITALS: BMI 22.5
--- NOTE | 2024-06-28 10:17 | MHC.SHP ---
Pre-Procedural Eval Section A - 24 Hr Update-Section A only Date of Service: 06/28/24 Section B - Complete if H&P > 30 days Chief Complaint: Other fecal abnormalities Relevant Family History (Specify if Yes): No Relevant Social History: Other (specify) (thc) Present Medications: see Short Stay Collaborative assessment Medical History: Significant History ( Positive colorectal cancer screening using Cologuard test Nonfunctioning kidney Gout Anemia Cervical spine instability) History of Previous Operations: Relevant previous surgery/procedure and date(s) (History of section History of kidney surgery History of carpal tunnel surgery H/O neck surgery) Allergies: Allergies Allergy/AdvReac Type Severity Reaction Status Date / Time bee pollen [bee stings] Allergy Severe Anaphylaxis Verified 06/28/24 09:56 Peanut Butter Allergy Severe Anaphylaxis Verified 06/28/24 09:56 Sulfa (Sulfonamide Allergy Severe Anaphylaxis Verified 06/28/24 09:56 Antibiotics) fluoride Allergy Intermediate Rash Verified 06/28/24 09:56 Review of Systems Sugical H&P ROS: Negative: Constitution, Cardiovascular, Respiratory, Neurological, Psychiatric, Hem-Onc, Allergic/Immunologic, Gastrointestinal, Genitourinary, Musculoskeletal, Integumentary, Endocrine and Eyes/Ears/Nose/Throat Exam Surgical H&P Exam: Normal: HEENT, Normal: Heart, Normal: Lungs, Normal: Extremities, Normal: Abdomen, Normal: Skin and Normal: Neurological Plan Diagnosis/Plan: Unchanged I have reviewed the history and physical and performed a pertinent physical examination on my patient. No changes have occurred unless specified. Time Spent With Patient Time: Total time managing care of this patient today ____ minutes.
[2024-06-28 10:20] VITALS: BP 140/82; PULSE 71; RESP 16; TEMP 36.9; O2SAT 97
[2024-06-28] MEDS: Lactated Ringers 1,000 ML 100 ML IVCONT (10:27)
--- NOTE | 2024-06-28 11:53 | HO.OPN-COLON ---
Colonoscopy Operative Note Operative Note Date of Service: 06/28/24 Narrative: Operative Information Procedure Description: Colonoscopy Indication: pos cologuard Anesthesia: MAC COLONOSCOPY Instrument: Olympus variable stiffness pediatric scope 190L Colonoscopy Monitoring: Vital signs and clinical assessment, continuous EKG monitoring, Pulse oximetry, Carbon Dioxide monitoring and blood pressure monitoring were done throughout the procedure. Colon withdrawal time was 27 minutes. Procedure: The patient was placed in the left lateral decubitis position and pre-procedure medications were administered. After a digital rectal examination of the ano-rectum, the video colonoscope was inserted into the rectum and advanced through the colon to the cecum/TI. The colonoscope was slowly withdrawn in a retrograde panoramic fashion and the colon mucosa was carefully examined including a retroflexed view of the rectum. Findings and interventions are described below. Procedure Difficulty: easy Findings: Terminal Ileum-not intubated Cecum: 5-7 mm sessile polyp removed with cold forceps Ascending Colon: normal Transverse Colon -normal Descending Colon: moderate diverticulosis Sigmoid Colon: moderate diverticulosis, x 2 sessile polyps 10 mm removed with cold snare Rectum: Retroflexion with small internal hemorrhoids seen, grade I, at 14 cm from anal verge a large pedunculated polyp measuring about 18-20 mm noted. It was injected with epinephrine and removed with hot snare with 2 clips applied for hemostasis. There were another 4 sessile polyps adjacent measuring from 8-12 mm removed with cold snare Anorectum - normal Intervention: cold snare, cold forceps, epinephrine injection Colon preparation: [place] Bowel Preparation Scale Right colon; 2 Transverse colon: 2 Left colon; 2 (0 = Unprepared colon segment with mucosa not seen due to solid stool that cannot be cleared. 1 = Portion of mucosa of the colon segment seen, but other areas of the colon segment not well seen due to staining, residual stool and/or opaque liquid. 2 = Minor amount of residual staining, small fragments of stool and/or opaque liquid, but mucosa of colon segment seen well. 3 = Entire mucosa of colon segment seen well with no residual staining, small fragments of stool or opaque liquid) Impression and Post Procedure Diagnosis: diverticulosis colon polyps internal hemorrhoids Plan: High fiber diet leaflet Avoid straining at stool, epsom salts and sitz bath, anusol supps or cream Repeat Colonoscopy in 3-6 months or earlier if clinically indicated if any severe abdominal pain, fevers, or profuse rectal bleeding come to ED JESSICA Above findings were reviewed with the patient and relevant handouts were provided if indicated.
[2024-06-28 11:58] VITALS: BP 146/68; PULSE 97; RESP 16; TEMP 36.4; O2SAT 98
[2024-06-28 12:13] VITALS: BP 154/63; PULSE 79; RESP 16; TEMP 36.3; O2SAT 100
== END 2024-06-28 12:52 | disposition home or self-care (01) ==
PROVIDERS: PCP Physician Assistant; Visit Provider Internal Medicine Gastroenterology
PROC: 0DJD8ZZ Inspection of Lower Intestinal Tract, Via Natural or Artificial Opening Endoscopic (ICD-10-PCS; CPT 45378; principal; 2024-06-28 11:20)
DX: R19.5 Other fecal abnormalities (principal); D12.0 Benign neoplasm of cecum; D12.5 Benign neoplasm of sigmoid colon; D12.8 Benign neoplasm of rectum; K57.30 Diverticulosis of large intestine without perforation or abscess without bleeding; K64.0 First degree hemorrhoids; N28.9 Disorder of kidney and ureter, unspecified; M10.9 Gout, unspecified; D64.9 Anemia, unspecified; M53.2X2 Spinal instabilities, cervical region; J45.909 Unspecified asthma, uncomplicated; Z91.010 Allergy to peanuts; Z88.2 Allergy status to sulfonamides; Z88.8 Allergy status to other drugs, medicaments and biological substances; Z87.891 Personal history of nicotine dependence; Z98.890 Other specified postprocedural states
CPT/HCPCS: 45385; 45380; 45381; 88305; J0171; J2003; J2250; J2704; J3010

== ENCOUNTER → 2024-06-28 08:57 | Outpatient (BNV) | payer BC, MEDICARE, SELFPAY | PROVIDERS: PCP Physician Assistant; Visit Provider Internal Medicine Gastroenterology | DX: Z12.11 Encounter for screening for malignant neoplasm of colon (principal); R19.5 Other fecal abnormalities; D12.0 Benign neoplasm of cecum; D12.5 Benign neoplasm of sigmoid colon; D12.8 Benign neoplasm of rectum; K57.90 Diverticulosis of intestine, part unspecified, without perforation or abscess without bleeding | CPT/HCPCS: 45380; 45381; 45385 ==

== ENCOUNTER 2024-07-12 10:37 | Outpatient (AMB) | payer BC, OTHER, SELFPAY ==
--- NOTE | 2024-07-12 10:43 | A.OFFVIS_ITS ---
Vital Signs 07/12/24 10:57 Height 5 ft 2 in Weight 122 lb 2.177 oz BMI 22.3 BP 168/72 H Blood Pressure Location Lt brachial Position Sitting Pulse 84 Intake Visit Reasons: s/p colon Intake Note: Marce presents to in office visit today s/p colonoscopy. CC: Patient reports doing well and denies having any GI symptoms or concerns today. Help Desk Assistant Required: No Allergies bee pollen [bee stings] Allergy (Severe, Verified 07/12/24 10:59) Anaphylaxis Peanut Butter Allergy (Severe, Verified 07/12/24 10:59) Anaphylaxis Sulfa (Sulfonamide Antibiotics) Allergy (Severe, Verified 07/12/24 10:59) Anaphylaxis fluoride Allergy (Intermediate, Verified 07/12/24 10:59) Rash HPI HPI s/p colon: Details: Assessment & Plan (1) Positive colorectal cancer screening using Cologuard test: Code(s): R19.5 - Other fecal abnormalities Category: Medical (2) Pre-op examination: Code(s): Z01.818 - Encounter for other preprocedural examination Category: Medical Plan This is first colonoscopy. She denies any bowel or upper GI problems. There are no prior problems with anesthesia or sedation. She denies any cardiac or respiratory problems.. No ID problems. No known FHX crc or polyps. Orders: Orders Comprehensive Met. Panel Today R19.5 - Other fecal abnormalities, Z01.818 - Encounter for other preprocedural examination Colonoscopy - GI Use Only Today R19.5 - Other fecal abnormalities, Z01.818 - Encounter for other preprocedural examination Complete Blood Count Auto Diff Today R19.5 - Other fecal abnormalities, Z01.818 - Encounter for other preprocedural examination COLONOSCOPY 06/28/24 Findings: Terminal Ileum-not intubated Cecum: 5-7 mm sessile polyp removed with cold forceps Ascending Colon: normal Transverse Colon -normal Descending Colon: moderate diverticulosis Sigmoid Colon: moderate diverticulosis, x 2 sessile polyps 10 mm removed with cold snare Rectum: Retroflexion with small internal hemorrhoids seen, grade I, at 14 cm from anal verge a large pedunculated polyp measuring about 18-20 mm noted. It was injected with epinephrine and removed with hot snare with 2 clips applied for hemostasis. There were another 4 sessile polyps adjacent measuring from 8-12 mm removed with cold snare Anorectum - normal Intervention: cold snare, cold forceps, epinephrine injection Impression and Post Procedure Diagnosis: diverticulosis colon polyps internal hemorrhoids Plan: High fiber diet leaflet Avoid straining at stool, epsom salts and sitz bath, anusol supps or cream Repeat Colonoscopy in 3-6 months or earlier if clinically indicated if any severe abdominal pain, fevers, or profuse rectal bleeding come to ED JESSICA BIOPSY Received: 06/28/24 Diagnosis A. Cecum, polypectomy: Fragments of tubular adenoma; negative for high-grade dysplasia or carcinoma. B. Colon, sigmoid, polypectomies: Tubular adenomata; negative for high-grade dysplasia or carcinoma. C. Rectum, proximal, polypectomies: - Tubular adenoma; negative for high-grade dysplasia or carcinoma. - Hyperplastic mucosal polyps. On 06/27/24 @ 12:19 Rachel Ho Wrote To IyvKimmy Per Jennifer Mccann ok to proceed with sodium 131. Spoke to Marce joe Sodium is better, but still low. Offered Kimmy's suggestion, she declined and will bring it up with PCP. Prep reviewed and verbalizes understanding. She has no further questions an aware SSS will call later today to confirm her arrival time. On 06/27/24 @ 11:08 Rachel Ho Wrote To IvyDecember so ok to proceed with colonoscopy, she did have a positive colo guard. and sutab is ok for prep? On 06/27/24 @ 10:38 Kimmy Haynes Wrote To IvyKimmy (2) Her Na+ is mildly low but not in the danger zone for IV fluids. I recommend that she be worked up for a condition called SIADH and I will either refer her to endocrinology or order the initial tests if she wishes. d. On 06/26/24 @ 15:32 Rachel Ho Wrote To Rachel Ho Spoke to patient - regarding low sodium, states she when she saw Herbert Ha on 06/14 he mentioned it was low. She reports other that that day she has never been told her sodium is low. She will repeat her labs tomorrow here at [facility]. 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 Will f/u tomorrow. On 06/26/24 @ 15:15 Kimmy Haynes Wrote To Rachel Ho Please call pt and tell her that she had a low sodium in her blood. I would like her to come back for electrolytes today if possible. WE did a chart dive, and the lab was completed by Herbert Ha and I NEVER SAW THE LAB!! New Orders Electrolytes Determined by Patient 06/26/24 On 06/26/24 @ 15:13 Rachel Ho Wrote To IvyDecember (2) she only has 1 functioning kidney per Herbert Ha's last note. On 06/26/24 @ 15:08 Kimmy Haynes Wrote To IvyKimmy (2) NO, I honestly don't remember seeing this until now! Looks like her PCP also was copied results and did not address. WIll try to get in touch with pt. On 06/26/24 @ 15:03 Rachel Ho Wrote To IvyDecember pt is scheduled on 06/28 for colonoscopy. You ordered labs on 02/08, her sodium came back low at 125, did you speak to patient or f/u with this? Pre admission testing is asking. TODAY'S VISIT She had a total of 8 polyps and one large pendunculated polyp that would necessitate a 6 mos follow up. She already has the appt in December 05 and we will re nancy her Na+ a week prior. She is eating salt, counselled about possibly following up on ? SIADH. The procedure was well tolerated. The results were explained and the patient is agreeable to the follow-up interval as stated. The bowel pattern has returned to normal. Education was provided to tell any 1st degree relatives about their findings to be sure that they are screened by age 45. Educated that they will be put on a recall list when it is time for their repeat scope but should they move out of state or away from the hospital they will need to remember along with their primary to repeat the procedure in a timely fashion to avoid any adverse complications. [facility] Medical History Asthma Positive colorectal cancer screening using Cologuard test Nonfunctioning kidney Gout Anemia Cervical spine instability Surgical History H/O colonoscopy History of section History of kidney surgery History of carpal tunnel surgery H/O neck surgery Social History Housing: House Alcohol intake: current Alcohol intake frequency: holidays/special occasions on ly Alcohol type: beer Patient Tobacco Use Status: Former Tobacco user Tobacco use type: Cigarette Years Smoked: pt states former tobacco user 20 yrs ago, current marijuanna use e-Cigarette/Vaping Use: Never Used Second Hand Smoke Exposure: Yes Substance Use Type: Marijuana service: No Current occupational status: retired Current occupation: [employer]- injury Cognitive needs: No Hearing needs: No Vision needs: No Female Reproductive History Menstrual Age of Menarche: 14 Review of Systems Const Denies fatigue, Denies fever(s), Denies night sweats, Denies poor appetite and Denies weight loss ENT Reports Normal hearing present, Denies dental pain, Denies dysphagia, Denies hearing loss, Denies mouth pain, Denies odynophagia, Denies throat swelling, Denies tongue swelling and Reports other (Dentition adequate) Card Reports no additional complaints Resp Reports no additional complaints GI Details: Denies abdominal pain, Denies melena, Denies bloating, Denies hematochezia, Denies constipation, Denies GI cramping, Denies dysphagia, Denies excessive flatus, Denies early satiety, Denies heartburn, Denies diarrhea, Denies nausea, Denies odynophagia, Denies vomiting and Denies hematemesis Skin/Breast Denies pruritus, Denies lesions, Denies rash and Denies jaundice Neuro Reports Normal hearing present and Denies Abnormal speech present Endo Denies fatigue Aller/Immun Denies throat swelling and Denies tongue swelling Physical Exam Vital Signs: Last Vital Signs Pulse 84 07/12/24 10:57 BP 168/72 H 07/12/24 10:57 BMI result Body Mass Index 22.3 Const General: cooperative, no acute distress, well developed and well groomed Nutritional Appearance: average body habitus and well nourished Orientation/consciousness: oriented to person, oriented to place and oriented to time Limitations: No language barrier HEENT Head: Yes normocephalic and Yes atraumatic Eyes General: appearance normal, both eyes and all related structures Pupils: Equal, round and reactive pupils present Neck Neck: Yes normal visual inspection and Yes no lymphadenopathy Thyroid: Thyroid normal Resp Effort & Inspection: normal respiratory effort and able to speak in complete sentences Auscultation: clear to auscultation bilaterally Cardio Rate: regular rate Rhythm: regular rhythm Heart sounds: Normal, physiologic split S2 sound present Peripheral pulses: radial pulses present and posterior tibial pulses present GI Inspection: No distended and No Abdominal panniculus present Palpation (GI): Soft to palpation, nontender, no guarding, not rigid and No hepatosplenomegaly present Percussion: Yes normal to percussion Auscultation: normal bowel sounds Rectal Exam - Female: deferred Skin General skin exam: no rashes or lesions noted, turgor normal, skin not dry, no jaundice, No spider nevi and no striae Rashes: no rashes Nails: normal Neuro General: oriented to person, oriented to place and oriented to time Cranial nerves: Yes Equal, round and reactive pupils present and Yes Normal hearing present Speech: No Abnormal speech present Extrem General: Yes normal to inspection, No clubbing, No cyanosis and No edema Psych Appearance: grossly normal and well kempt Mental Status: mental status grossly normal Speech and movement: Normal speech and movement present Affect: normal affect Attitude: cooperative Thought process: Normal thought process present and not confabulating Thought content: Normal thought content present Insight: Limited insight present (Psych) Judgement: Limited judgement present (Psych) Assessment & Plan Assessment & Plan (1) Multiple adenomatous polyps: Comment: 8 polyps 06/2024 scope repeat 6 mos. Code(s): D36.9 - Benign neoplasm, unspecified site Category: Medical (2) Hyponatremia: Code(s): E87.1 - Hypo-osmolality and hyponatremia Category: Medical Plan She had a total of 8 polyps and one large pendunculated polyp that would necessitate a 6 mos follow up. She already has the appt in December 05 and we will re nancy her Na+ a week prior. She is eating salt, counselled about possibly following up on ? SIADH. The procedure was well tolerated. The results were explained and the patient is agreeable to the follow-up interval as stated. The bowel pattern has returned to normal. Education was provided to tell any 1st degree relatives about their findings to be sure that they are screened by age 45. Educated that they will be put on a recall list when it is time for their repeat scope but should they move out of state or away from the hospital they will need to remember along with their primary to repeat the procedure in a timely fashion to avoid any adverse complications Orders: Orders Electrolytes 11/26/24 E87.1 - Hypo-osmolality and hyponatremia Coding Level of Care Code Est Pt Level 3 (36719) Diagnoses Multiple adenomatous polyps D36.9 Hyponatremia E87.1
[2024-07-12 10:57] VITALS: BP 168/72; PULSE 84; BMI 22.3
== END 2024-07-12 11:17 | disposition home or self-care (01) ==
LOC: HO.HGI 10:38
PROVIDERS: PCP Physician Assistant; Visit Provider Nurse Practitioner
DX: D36.9 Benign neoplasm, unspecified site (principal); E87.1 Hypo-osmolality and hyponatremia
CPT/HCPCS: 99213

== ENCOUNTER 2024-12-05 07:18 | Day surgery (SDC) | payer BC, MEDICARE, SELFPAY ==
[2024-12-03 13:30] VITALS: BMI 22.3
--- NOTE | 2024-12-04 10:21 | P.CONAN_ITS ---
Documented by User: Jennifer Mccann NP 12/04/24 10:21 HPI - Anesthesia Eval Consult details Narrative: 59yo F for Colonoscopy Hx low Na PMFSH Active Problems Active Problems: All Active Problems Multiple adenomatous polyps (Acute) Hyponatremia (Acute) Anaphylactic reaction (Acute) Anemia (Acute) Elevated liver enzymes (Acute) Pre-op examination (Acute) Positive colorectal cancer screening using Cologuard test (Acute) Screening for diabetes mellitus (DM) (Acute) Cervical spine disease (Acute) History of smoking (Acute) Cervical disc disorder (Acute) Gout (Acute) Past Medical History Medical History Asthma Positive colorectal cancer screening using Cologuard test Nonfunctioning kidney Gout Anemia Cervical spine instability Family History Family history of problems with anesthesia: No Surgical History Surgical History H/O colonoscopy History of section History of kidney surgery History of carpal tunnel surgery H/O neck surgery History of Problems with Anesthesia: Yes Social History Social History Housing: House Are you a primary healthcare or medical to a significant other at home: No Do you presently have visiting nurse or other home services: No Alcohol intake: current Alcohol intake frequency: holidays/special occasions only Alcohol type: beer Patient Tobacco Use Status: Former Tobacco user Tobacco use type: Cigarette Years Smoked: pt states former tobacco user 20 yrs ago, current marijuanna use e-Cigarette/Vaping Use: Never Used Second Hand Smoke Exposure: Yes Use of substances other than those prescribed or required for medical reasons: Yes Substance Use Type: Marijuana Substance Use Frequency: Daily Have you been hit, kicked, punched, or otherwise hurt by someone within the past year? If so, by whom?: No Advance Directives: No Advance Directives Information Provided: Yes service: No Current occupational status: retired Current occupation: [employer]- injury Cognitive needs: No Hearing needs: No Vision needs: No Meds Allergies Allergy/AdvReac Type Severity Reaction Status Date / Time bee pollen [bee stings] Allergy Severe Anaphylaxis Verified 07/12/24 10:59 Peanut Butter Allergy Severe Anaphylaxis Verified 07/12/24 10:59 Sulfa (Sulfonamide Allergy Severe Anaphylaxis Verified 07/12/24 10:59 Antibiotics) fluoride Allergy Intermediate Rash Verified 07/12/24 10:59 Exam Height,Weight and Vital Signs: Height 5 ft 2 in Weight 55.338 kg Assessment and Plan Assessment Anesthesia Assessment: Chart Reviewed Final Anesthetic Review Family History of Problems with Anesthesia: No History of Problems with Anesthesia: Yes Documented by User: Annmarie Corrales MD 12/05/24 08:45 PMFSH Past Medical History Medical History Asthma Positive colorectal cancer screening using Cologuard test Nonfunctioning kidney Gout Anemia Cervical spine instability Surgical History Surgical History H/O colonoscopy History of section History of kidney surgery History of carpal tunnel surgery H/O neck surgery Social History Social History Housing: House Are you a primary healthcare or medical to a significant other at home: No Do you presently have visiting nurse or other home services: No Alcohol intake: current Alcohol intake frequency: holidays/special occasions only Alcohol type: beer Patient Tobacco Use Status: Former Tobacco user Tobacco use type: Cigarette Years Smoked: pt states former tobacco user 20 yrs ago, [facility] use e-Cigarette/Vaping Use: Never Used Second Hand Smoke Exposure: Yes Use of substances other than those prescribed or required for medical reasons: Yes Substance Use Type: Marijuana Substance Use Frequency: Daily Have you been hit, kicked, punched, or otherwise hurt by someone within the past year? If so, by whom?: No Advance Directives: No Advance Directives Information Provided: Yes service: No Current occupational status: retired Current occupation: [employer]- injury Cognitive needs: No Hearing needs: No Vision needs: No Meds Allergies Allergy/AdvReac Type Severity Reaction Status Date / Time bee pollen [bee stings] Allergy Severe Anaphylaxis Verified 07/12/24 10:59 Peanut Butter Allergy Severe Anaphylaxis Verified 07/12/24 10:59 Sulfa (Sulfonamide Allergy Severe Anaphylaxis Verified 07/12/24 10:59 Antibiotics) fluoride Allergy Intermediate Rash Verified 07/12/24 10:59 Exam Airway Mallampati Class: II TM Dist: >3cm Neck ROM: Full Denture: Upper Heart: rrr Lungs: cta Assessment and Plan Assessment Anesthesia Assessment: Anesthesia Plan Discussed Final Anesthetic Review NPO: Yes ASA Class: III Final Preanesthetic Review: No Changes in Pt Med Stat, Meds/Allgs Chart Reviewed and Consent Obtained/Reviewed Patient Risk: Low Procedure Risk: Low Anesthetic Plan Anesthetic Plan: MAC: Disposition: Standard PACU
--- NOTE | 2024-12-05 07:07 | MHC.SHP ---
Pre-Procedural Eval Section A - 24 Hr Update-Section A only Date of Service: 12/05/24 Section B - Complete if H&P > 30 days Chief Complaint: Personal history of colon polyps, Relevant Family History (Specify if Yes): No Relevant Social History: None Present Medications: see Short Stay Collaborative assessment Medical History: Significant History (Asthma Positive colorectal cancer screening using Cologuard test Nonfunctioning kidney Gout Anemia Cervical spine instability) History of Previous Operations: Relevant previous surgery/procedure and date(s) (H/O colonoscopy History of section History of kidney surgery History of carpal tunnel surgery H/O neck surgery) Allergies: Allergies Allergy/AdvReac Type Severity Reaction Status Date / Time bee pollen [bee stings] Allergy Severe Anaphylaxis Verified 07/12/24 10:59 Peanut Butter Allergy Severe Anaphylaxis Verified 07/12/24 10:59 Sulfa (Sulfonamide Allergy Severe Anaphylaxis Verified 07/12/24 10:59 Antibiotics) fluoride Allergy Intermediate Rash Verified 07/12/24 10:59 Review of Systems Sugical H&P ROS: Negative: Constitution, Cardiovascular, Respiratory, Neurological, Psychiatric, Hem-Onc, Allergic/Immunologic, Gastrointestinal, Genitourinary, Musculoskeletal, Integumentary, Endocrine and Eyes/Ears/Nose/Throat Exam Surgical H&P Exam: Normal: HEENT, Normal: Heart, Normal: Lungs, Normal: Extremities, Normal: Abdomen, Normal: Skin and Normal: Neurological Plan Diagnosis/Plan: Unchanged I have reviewed the history and physical and performed a pertinent physical examination on my patient. No changes have occurred unless specified. Time Spent With Patient Time: Total time managing care of this patient today ____ minutes.
[2024-12-05 07:33] VITALS: BMI 23.4
[2024-12-05 07:54] VITALS: BP 136/70; PULSE 64; RESP 18; TEMP 36.6; O2SAT 96
[2024-12-05 08:00] LABS: Anion Gap 12 (12-20); Carbon Dioxide 23 mmol/L (22-29); Chloride 106 mmol/L (96-108); Potassium 4.1 mmol/L (3.3-5.1); Sodium 137 mmol/L (135-145)
[2024-12-05] MEDS: Lactated Ringers 1,000 ML 100 ML IVCONT (08:10)
--- NOTE | 2024-12-05 09:23 | HO.OPN-COLON ---
Colonoscopy Operative Note Operative Note Date of Service: 12/05/24 Narrative: Operative Information Procedure Description: Colonoscopy Indication: hx of colon polyps Anesthesia: MAC COLONOSCOPY Instrument: Olympus variable stiffness pediatric scope 190L Colonoscopy Monitoring: Vital signs and clinical assessment, continuous EKG monitoring, Pulse oximetry, Carbon Dioxide monitoring and blood pressure monitoring were done throughout the procedure. Colon withdrawal time was 22 minutes. Procedure: The patient was placed in the left lateral decubitis position and pre-procedure medications were administered. After a digital rectal examination of the ano-rectum, the video colonoscope was inserted into the rectum and advanced through the colon to the cecum/TI. The colonoscope was slowly withdrawn in a retrograde panoramic fashion and the colon mucosa was carefully examined including a retroflexed view of the rectum. Findings and interventions are described below. Procedure Difficulty: difficult, pressure applied LUQ Findings: Terminal Ileum-not intubated Cecum:normal Ascending Colon: moderate diverticulosis, 6-9 mm sessile polyp removed with cold snare, x1 clip applied for hemostasis Transverse Colon -normal Descending Colon:normal Sigmoid Colon: moderate diverticulosis Rectum: Retroflexion with small internal hemorrhoids seen, grade I, 6-8 mm flat polyp raised with eleview and removed with cold snare, not retrieved Anorectum - normal Intervention: cold snare and eleview injection, clip Colon preparation: [place] Bowel Preparation Scale Right colon; 1-2 Transverse colon: 2 Left colon; 1-2 (0 = Unprepared colon segment with mucosa not seen due to solid stool that cannot be cleared. 1 = Portion of mucosa of the colon segment seen, but other areas of the colon segment not well seen due to staining, residual stool and/or opaque liquid. 2 = Minor amount of residual staining, small fragments of stool and/or opaque liquid, but mucosa of colon segment seen well. 3 = Entire mucosa of colon segment seen well with no residual staining, small fragments of stool or opaque liquid) Impression and Post Procedure Diagnosis: diverticulosis colon polyps internal hemorrhoids Plan: High fiber diet leaflet Avoid straining at stool, epsom salts and sitz bath, anusol supps or cream Repeat Colonoscopy in 1 year due to areas of fair prep or earlier if clinically indicated --next time use adult scope or colowarp Above findings were reviewed with the patient and relevant handouts were provided if indicated.
[2024-12-05 09:26] VITALS: BP 126/64; PULSE 75; RESP 16; TEMP 36.1; O2SAT 96
[2024-12-05 09:41] VITALS: BP 128/71; PULSE 67; RESP 18; TEMP 36.2; O2SAT 97
== END 2024-12-05 10:06 | disposition home or self-care (01) ==
PROVIDERS: Nurse Practitioner; PCP Internal Medicine Medical Oncology; Visit Provider Internal Medicine Gastroenterology
PROC: 0DJD8ZZ Inspection of Lower Intestinal Tract, Via Natural or Artificial Opening Endoscopic (ICD-10-PCS; CPT 45378; principal; 2024-12-05 08:30)
DX: Z12.11 Encounter for screening for malignant neoplasm of colon (principal); Z86.0101 Personal history of adenomatous and serrated colon polyps; K63.5 Polyp of colon; K57.30 Diverticulosis of large intestine without perforation or abscess without bleeding; K64.0 First degree hemorrhoids; D64.9 Anemia, unspecified; N28.9 Disorder of kidney and ureter, unspecified; E87.1 Hypo-osmolality and hyponatremia; J45.909 Unspecified asthma, uncomplicated; M10.9 Gout, unspecified; Z79.899 Other long term (current) drug therapy; Z88.2 Allergy status to sulfonamides; Z91.030 Bee allergy status; Z91.010 Allergy to peanuts; Z91.048 Other nonmedicinal substance allergy status; Z87.891 Personal history of nicotine dependence
CPT/HCPCS: 45385; 45381; 36415; 80051; 88305; J2003; J2704

== ENCOUNTER → 2024-12-05 07:18 | Outpatient (BNV) | payer BC, MEDICARE, SELFPAY | PROVIDERS: PCP Internal Medicine Medical Oncology; Visit Provider Internal Medicine Gastroenterology | DX: Z12.11 Encounter for screening for malignant neoplasm of colon (principal); Z86.0100 Personal history of colon polyps, unspecified; K63.5 Polyp of colon; K57.90 Diverticulosis of intestine, part unspecified, without perforation or abscess without bleeding | CPT/HCPCS: 45381; 45385 ==

== ENCOUNTER 2024-12-06 10:43 | Outpatient (AMB) | payer BC, OTHER, SELFPAY ==
--- NOTE | 2024-12-06 10:46 | A.OFFPC_ITS ---
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 Required: No Accompanied by: Self / Same As Patient Allergies bee pollen [bee stings] Allergy (Severe, Verified 12/06/24 11:06) Anaphylaxis Peanut Butter Allergy (Severe, Verified 12/06/24 11:06) Anaphylaxis Sulfa (Sulfonamide Antibiotics) Allergy (Severe, Verified 12/06/24 11:06) Anaphylaxis fluoride Allergy (Intermediate, Verified 12/06/24 11:06) Rash Medication List - Last Reconciled 12/06/24 by Zacarias Ha PA-C epinephrine (EpiPen 2-Tushar) 0.3 mg (0.3 mL) IM ONCE PRN 30 days pregabalin (Lyrica) 100 mg PO Q8H 90 days Tobacco use date assessed: 06/14/24 Dental Screening Dental Screen Date: 10/17/23 HPI physical HPI Details atient is a 58-year-old female here today for a follow-up visit. Patient has a past medical history significant for chronic cervical spine pain, former smoker will adenomatous colon polyps, severe peanut allergy .. Cervical disc disease: She was involved in a work-related incident 2006 in [place] injuring her neck. She is status post multiple neck surgeries. She has been Lyrica 100 mg t.i.d. since 2007. She reports good pain relief with this medication. She was on worker's comp in [place] whom was managing and paying for the medication. He continues on Lyrica 100 mg b.i.d. with good effect on reducing her pain. Former smoker: Quit smoking in 1999, she reports smoking for 20 years. She is interested in lung cancer screening. 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: See a LIQUID CHLORINE OPERATOR here in [facility] Medical History Asthma Positive colorectal cancer screening using Cologuard test Nonfunctioning kidney Gout Anemia Cervical spine instability Surgical History H/O colonoscopy History of section History of kidney surgery History of carpal tunnel surgery H/O neck surgery Social History (Updated 12/06/24 @ 11:14 by Zacarias Ha PA-C) Housing: House Are you a primary medicare coordinator to a significant other at home: No Do you presently have visiting nurse or other home services: No Alcohol intake: current Alcohol intake frequency: holidays/special occasions only Alcohol type: beer Patient Tobacco Use Status: Former Tobacco user Tobacco use type: Cigarette Years Smoked: pt states former tobacco user 20 yrs ago, current marijuanna use e-Cigarette/Vaping Use: Never Used Second Hand Smoke Exposure: Yes Substance Use Type: Marijuana service: No Current occupational status: retired Current occupation: [employer]- injury Cognitive needs: No Hearing needs: No Vision needs: No Female Reproductive History Menstrual Age of Menarche: 14 Questionnaire Thrive Questionnaire Date Thrive assessed: 10/17/23 Are you currently unemployed and looking for a job?: I choose not to answer this question LUIZ-7 AMB Questionnaire LUIZ-7 Date LUIZ - 7 assessed: 10/17/23 Source: Developed by Drs. Avi Pulliam, Ni Espana, Don Bates and colleagues, with an educational guy from [employer]. Review of Systems Const Denies body aches, Denies chills, Denies excessive sweating, Denies fatigue, Denies fever(s) and Denies headache(s) Eyes Denies blurry vision ENT Denies dysphagia, Denies vertigo, Denies dizziness, Denies headache(s), Denies hearing loss and Denies tinnitus Card Denies chest pain, Denies chest pain with activity, Denies syncope, Denies irregular heart rhythm and Denies dyspnea Resp Denies chest congestion, Denies cough, Denies hemoptysis, Denies dyspnea and Denies wheezing GI Denies abdominal pain, Denies melena, Denies hematochezia, Denies coffee ground emesis, Denies dysphagia, Denies diarrhea, Denies nausea and Denies vomiting Denies urinary frequency, Denies dysuria, Denies urinary hesitancy and Denies urinary urgency Musc Denies arthralgias, Denies limited range of motion, Denies muscle cramps and Denies muscle weakness Skin/Breast Denies rash and Denies skin ulcer Neuro Denies Abnormal speech present, Denies confusion, Denies vertigo, Denies dizziness, Denies syncope, Denies headache(s), Denies memory loss and Denies seizure-like activity Psych Denies anxiety, Denies confusion, Denies depression, Denies memory loss, Denies panic attacks and Denies paranoia Endo Denies excessive sweating, Denies fatigue, Denies flushing, Denies polydipsia and Denies polyuria Aller/Immun Denies wheezing Physical exam (Primary Care) Vital Signs: Last Vital Signs Pulse 103 H 12/06/24 10:50 BP 150/70 H 12/06/24 10:50 Pulse Ox 95 12/06/24 10:50 Oxygen Delivery Method Room Air 12/06/24 10:50 BMI result Body Mass Index 23.1 Tobacco/Smoking Status: Tobacco use Status Tobacco use date assessed 06/14/24 12/06/24 10:48 Patient Tobacco Use Status Former Tobacco user 12/06/24 10:48 Tobacco use type Cigarette 12/06/24 10:48 e-Cigarette/Vaping Use Never Used 12/06/24 10:48 Thrive Assessment: Date of Thrive Assessment Date Thrive assessed 10/17/23 12/06/24 10:48 Const General: cooperative, comfortable, no acute distress, alert and awake; No confusion Orientation/consciousness: oriented to person, oriented to place, patient oriented x3 and No confusion HENMT Head: Yes normocephalic Ears: external ears normal and TM's normal bilaterally Face and sinus: No sinus tenderness Mouth: Normal oral and palatal mucosa present and tongue normal Teeth and gingiva: dentition normal and gingiva normal Throat: Yes posterior oropharynx normal, Yes tonsils normal and Yes uvula midline Eyes Conjunctivae: conjunctivae normal Sclerae: sclerae normal Pupils: Equal, round and reactive pupils present EOM: EOMs intact bilaterally Direct Ophthalmoscopy: No no photophobia Neck Neck: Yes no lymphadenopathy, No tender and Yes no JVD Thyroid: Thyroid normal Carotids: no bruits Chest Chest palpation & inspection: no tenderness Resp Effort & Inspection: normal respiratory effort, no audible wheezes, not labored and no stridor Auscultation: no crackles, no rales, no rhonchi and no wheezes Cardio Jugular venous distension: no JVD Rate: regular rate, not bradycardic and not tachycardic Rhythm: regular rhythm Bruits: no carotid bruits Peripheral pulses: Peripheral pulses 2+ throughout GI Inspection: Yes normal to inspection, No abdominal wall ecchymosis and No visible herniation Palpation (GI): Soft to palpation, nontender, no guarding, not rigid and No hepatosplenomegaly present Auscultation: normoactive bowel sounds General: Yes no CVA tenderness Back/Spine/Pelvis Back: no CVA tenderness and No back tenderness Cervical Spine: cervical ROM normal Thoracic/Lumbar Spine: thoracic and lumbar spine normal to inspection, straight leg raise negative bilaterally, No thoraco-lumbar ROM limited and No lumbar spinal tenderness Skin Lesions: no lesions Rashes: no rashes Wounds: no wounds Neuro General: oriented to person, oriented to place, patient oriented x3, CN's II-XI intact bilaterally and No confusion Cranial nerves: Yes Equal, round and reactive pupils present and Yes Normal accommodation reflex present Cognition (Neuro): normal cognition Speech: No Abnormal speech present Gait exam (Neuro): Normal gait present Motor exam (neuro): 5/5 motor strength present throughout Extrem Right upper extremity: full ROM; no cyanosis Left upper extremity: full ROM; no cyanosis Right lower extremity: no edema Left lower extremity: no edema Psych Appearance: grossly normal Mental Status: mental status grossly normal Affect: normal affect Attitude: cooperative Thought process: Normal thought process present Coding Level of Care Code Est Pt Prev Care 40-64y(79996) Diagnoses Annual physical exam Z00.00 Cervical disc disorder M50.90 Elevated liver enzymes R74.8 Anemia due to other cause, not classified D64.89 Anemia type: other cause Other causes of anemia: other cause, not classified Multiple adenomatous polyps D36.9 Assessment & Plan Assessment & Plan (1) Annual physical exam: Code(s): Z00.00 - Encounter for general adult medical examination without abnormal fi ndings Category: Medical Plan: As per HPI (2) Cervical disc disorder: Code(s): M50.90 - Cervical disc disorder, unspecified, unspecified cervical region Category: Medical Plan: Patient reports her pain is well controlled with current dose of Lyrica. Will continue to follow q.6 months. (3) Elevated liver enzymes: Code(s): R74.8 - Abnormal levels of other serum enzymes Category: Medical Plan: Most recent labs showing slightly elevated liver enzymes. She reports she did have liver disease in the past and found out she had a peanut allergy. Will consider ultrasound liver if liver enzymes continue to remain elevated. (4) Anemia: Code(s): D64.9 - Anemia, unspecified Category: Medical Qualifiers: Anemia type: other cause Other causes of anemia: other cause, not classified Qualified Code(s): D64.89 - Other specified anemias Plan: Noted slight anemia on most recent labs. Of note patient does have 1 f unctioning kidney. Will check iron, B12 folate. (5) Multiple adenomatous polyps: Comment: 8 polyps 06/2024 scope repeat 6 mos. Code(s): D36.9 - Benign neoplasm, unspecified site Category: Medical Plan: Patient has had repeat colonoscopies and most recent colonoscopy showing only to polyps. She will repeat 1 year Medications: Refilled pregabalin (Lyrica) 100 mg PO Q8H 90 days 270 caps 1RF M48.9 - Spondylopathy, unspecified
[2024-12-06 10:50] VITALS: BP 150/70; PULSE 103; O2SAT 95; BMI 23.1
== END 2024-12-06 11:21 | disposition home or self-care (01) ==
LOC: HO.HMCH 10:44
PROVIDERS: PCP Physician Assistant; Visit Provider Physician Assistant
DX: Z00.00 Encounter for general adult medical examination without abnormal findings (principal); M50.90 Cervical disc disorder, unspecified, unspecified cervical region; R74.8 Abnormal levels of other serum enzymes; D64.89 Other specified anemias; D36.9 Benign neoplasm, unspecified site

== ENCOUNTER → 2024-12-06 10:43 | Outpatient (BNVA) | payer BC, OTHER, SELFPAY | PROVIDERS: PCP Physician Assistant; Visit Provider Physician Assistant ==

== ENCOUNTER 2024-12-17 08:08 | Outpatient (AMB) | payer BC, OTHER, SELFPAY ==
--- NOTE | 2024-12-17 08:10 | A.OFFVIS_ITS ---
Intake Visit Reasons: s/p repeat colon Intake Note: Marce presents as a telehealth to go over results to her repeat colonoscopy. CC: December patient scheduled in error - just results to her colonoscopy. Customer Service Advocate Required: No Allergies bee pollen [bee stings] Allergy (Severe, Verified 12/17/24 08:11) Anaphylaxis Peanut Butter Allergy (Severe, Verified 12/17/24 08:11) Anaphylaxis Sulfa (Sulfonamide Antibiotics) Allergy (Severe, Verified 12/17/24 08:11) Anaphylaxis fluoride Allergy (Intermediate, Verified 12/17/24 08:11) Rash HPI HPI s/p repeat colon: Details: 59 yr old f being called for f/u RECAP: Hx of colonoscopy 1024 with several polyps incl a large peducnulated one near the rectal anal area tubular adenomata repeat colo 12/28- few polys removed, diverticulosis--fair prep INTERIM doing well no concerns no abdominal pain no rectal bleeding A/P: 1/ colonic polyps PLAN: 1/ repeat colo 1 yr or earlier if clinically indicated 2/ reviewed colo findings incl diverticulosis PFSH Medical History Asthma Positive colorectal cancer screening using Cologuard test Nonfunctioning kidney Gout Anemia Cervical spine instability Surgical History H/O colonoscopy History of section History of kidney surgery History of carpal tunnel surgery H/O neck surgery Social History Housing: House Are you a primary palliative care nurse to a significant other at home: No Do you presently have visiting nurse or other home services: No Alcohol intake: current Alcohol intake frequency: holidays/special occasions only Alcohol type: beer Patient Tobacco Use Status: Former Tobacco user Tobacco use type: Cigarette Years Smoked: pt states former tobacco user 20 yrs ago, current marijuanna use e-Cigarette/Vaping Use: Never Used Second Hand Smoke Exposure: Yes Substance Use Type: Marijuana service: No Current occupational status: retired Current occupation: [employer]- injury Cognitive needs: No Hearing needs: No Vision needs: No Female Reproductive History Menstrual Age of Menarche: 14 Telehealth Telehealth Telehealth Platform: Telephone Location of provider rendering services: practice address Location of patient: address on file Patient Identification confirmed using: Name, : Yes Telehealth method: voice only Patient verbally consented to treatment: Yes Patient verbally consented to billing insurance company: Yes Patient informed of any privacy concerns related to visit: Yes Minutes spent on Phone/Video with Pt.: 5 Assessment & Plan Assessment & Plan (1) Multiple adenomatous polyps: Comment: 8 polyps 06/2024 scope repeat 6 mos. Code(s): D36.9 - Benign neoplasm, unspecified site Category: Medical Plan: as above Coding Level of Care Code Tele Est Pt Level 3 (87194) Diagnoses Multiple adenomatous polyps D36.9
== END 2024-12-17 15:25 | disposition home or self-care (01) ==
PROVIDERS: PCP Physician Assistant; Visit Provider Internal Medicine Gastroenterology
DX: K63.5 Polyp of colon (principal)
CPT/HCPCS: 99213

== ENCOUNTER → 2024-12-17 08:08 | Outpatient (BNVA) | payer BC, OTHER, SELFPAY | PROVIDERS: PCP Physician Assistant; Visit Provider Internal Medicine Gastroenterology ==

== ENCOUNTER 2025-02-06 07:21 | Outpatient (AMB) | payer BC, OTHER, SELFPAY ==
--- NOTE | 2025-02-06 07:26 | A.OFFVIS_ITS ---
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 No complaints. Last Pap/HPV was negative in 11/26 Last Mammogram was many years ago Last Colonoscopy was in 12/28, the recommendation was to repeat in 1 year [facility] Medical History Asthma Positive colorectal cancer screening using Cologuard test Nonfunctioning kidney Gout Anemia Cervical spine instability Surgical History H/O colonoscopy History of section History of kidney surgery History of carpal tunnel surgery H/O neck surgery Social History Housing: House Are you a primary critical care educator to a significant other at home: No Do you presently have visiting nurse or other home services: No Alcohol intake: current Alcohol intake frequency: holidays/special occasions only Alcohol type: beer Patient Tobacco Use Status: Former Tobacco user Tobacco use type: Cigarette Years Smoked: pt states former tobacco user 20 yrs ago, current marijuanna use e-Cigarette/Vaping Use: Never Used Second Hand Smoke Exposure: Yes Substance Use Type: Marijuana service: No Current occupational status: retired Current occupation: [employer]- injury Cognitive needs: No Hearing needs: No Vision needs: No Female Reproductive History Menstrual Age of Menarche: 14 Date of last pap smear: 11/25/23 Review of Systems Const All systems reviewed & are unremarkable except as noted in HPI and below Card Reports as per HPI Resp Reports as per HPI GI Reports as per HPI and Reports no additional complaints Reports as per HPI Physical Exam Vital Signs: Last Vital Signs BP 126/60 02/06/25 07:30 BMI result Body Mass Index 22.1 Const General: cooperative, healthy appearing and comfortable Chest Chest palpation & inspection: normal inspection of the chest and normal palpation of entire chest wall Breast/axilla inspection: normal inspection of the breasts and normal inspection of the axillae Breast/axilla palpation: normal palpation of the breasts, normal palpation of the axillae and no axillary lymphadenopathy Resp Effort & Inspection: normal respiratory effort Auscultation: clear to auscultation bilaterally Percussion: percussion normal Cardio Palpation: normal PMI Rate: regular rate Rhythm: regular rhythm Heart sounds: no murmurs and no rubs Peripheral pulses: Peripheral pulses 2+ throughout GI Inspection: Yes normal to inspection Palpation (GI): Soft to palpation, nontender, no guarding, not rigid and No hepatosplenomegaly present Percussion: Yes normal to percussion Auscultation: normal bowel sounds Rectal Exam - Female: deferred General: Yes bladder normal to palpation External Female Exam: No lesion Speculum Exam - Vagina: normal appearance of the vagina, normal palpation, normal vaginal discharge and not erythematous Speculum Exam - Cervix: normal appearance of the cervix and normal palpation Bimanual exam- vagina & uterus: normal bimanual exam, normal palpation, uterine size normal, bladder normal to palpation, consistency normal and normal palpation Bimanual Exam- Adnexa, other: normal adnexae, no masses and no tenderness Assessment & Plan Assessment & Plan (1) Well woman exam: Code(s): Z01.419 - Encounter for gynecological examination (general) (routine) without abnormal findings Category: Medical Plan: Co testing done. Counseled the patient about the recommended dietary allowance of 1200 mg of Calcium & 600 IU of vitamin D. Discussed with the patient screening Mammogram benefits and risks, order placed and canceled per patient's request, the patient was given the patient plan education information regarding breast cancer screening , would like to think about it and get back to us The patient was instructed to perform monthly self-breast exams and schedule annual exam in a year. All questions answered and the patient verbalized understanding. Coding Level of Care Code New Pt Prev Care 40-64y(94097) Diagnoses Well woman exam Z01.419
[2025-02-06 07:30] VITALS: BP 126/60; BMI 22.1
== END 2025-02-06 07:58 | disposition home or self-care (01) ==
LOC: HO.HWS 07:21
PROVIDERS: PCP Physician Assistant; Visit Provider Obstetrics & Gynecology
DX: Z01.419 Encounter for gynecological examination (general) (routine) without abnormal findings (principal)
CPT/HCPCS: 99396; 99459

== ENCOUNTER → 2025-02-06 07:21 | Outpatient (BNVA) | payer BC, OTHER, SELFPAY | PROVIDERS: PCP Physician Assistant; Visit Provider Obstetrics & Gynecology ==

== ENCOUNTER 2025-07-29 09:00 | Outpatient (AMB) | payer BC, OTHER, SELFPAY ==
--- NOTE | 2025-07-29 09:35 | A.OFFPC_ITS ---
Vital Signs 07/29/25 09:37 Height 5 ft 2 in Weight 121 lb 6 oz BMI 22.2 BP 148/70 H Blood Pressure Location Lt brachial Position Sitting Pulse 98 Pulse Source Pulse Oximeter Temp 97.5 F Temp Source Temporal Artery Scan Pulse Oximetry (%) 96 Oxygen Delivery Method Room Air Intake Visit Reasons: needs pre op-dental extractions Intake Note: Patient is here for a Pre-op for Tooth exaction scheduled with [facility] on unknown. Tunnel Miner Required: No Director Of Leadership Development: Not Required per policy Accompanied by: Self / Same As Patient Allergies bee pollen (bee stings) Allergy (Severe, Verified 07/29/25 09:48) Anaphylaxis Peanut Butter Allergy (Severe, Verified 07/29/25 09:48) Anaphylaxis Sulfa (Sulfonamide Antibiotics) Allergy (Severe, Verified 07/29/25 09:48) Anaphylaxis fluoride Allergy (Intermediate, Verified 07/29/25 09:48) Rash Medication List - Last Reconciled 07/29/25 by Zacarias Ha PA-C epinephrine (EpiPen 2-Tushar) 0.3 mg (0.3 mL) IM ONCE PRN 30 days pregabalin (Lyrica) 100 mg PO Q8H 90 days sod sulf-pot chloride-mag sulf 1.479-0.188- 0.225 gram (Sutab) PO PER PKG DIR for colonoscopy prep Tobacco use date assessed: 07/29/25 Dental Screening Dental Screen Date: 07/29/25 Did you have a dental visit in the last 12 months?: Yes Did you have a dental problem in the last 6 months where you did not have access to dental care?: No Was dental information given to patient?: Patient has dentist HPI needs pre op-dental extractions HPI Details Patient is a 60-year-old female here today for a preop visit. Patient is due for dental extractions. Patient has a past medical history significant for chronic cervical spine pain, former smoker will adenomatous colon polyps, severe peanut allergy. Patient has no past medical history significant for CVA, Congestive heart failur e for [place]. Patient is not on any anticoagulation or antiplatelet therapy at this time. She reports at her most recent evaluation at the dental office she had an elevated heart rate and elevated blood pressure. She reports being under personal stress with trying a by a home in [place] and has been causing her a lot of emotional distress which she feels is raising her blood pressure. Her blood pressure usually is normal here in the office otherwise she is asymptomatic without any chest discomfort, dizziness, headaches or vision impairments. [facility] Medical History Asthma Positive colorectal cancer screening using Cologuard test Nonfunctioning kidney Gout Anemia Cervical spine instability Surgical History H/O colonoscopy History of section History of kidney surgery History of carpal tunnel surgery H/O neck surgery Social History Housing: House Are you a primary director of managed care to a significant other at home: No Do you presently have visiting nurse or other home services: No Alcohol intake: current Alcohol intake frequency: holidays/special occasions only Alcohol type: beer Patient Tobacco Use Status: Former Tobacco user Tobacco use type: Cigarette Years Smoked: pt states former tobacco user 20 yrs ago, current marijuanna use e-Cigarette/Vaping Use: Never Used Second Hand Smoke Exposure: Yes Substance Use Type: Marijuana service: No Current occupational status: retired Current occupation: [employer]- injury Cognitive needs: No Hearing needs: No Vision needs: No Female Reproductive History Menstrual Age of Menarche: 14 Questionnaire PHQ-9 Over the last 2 weeks, how often have you been bothered by any of the following problems? 1. Little interest or pleasure in doing things: not at all 2. Feeling down, depressed, or hopeless: not at all 3. Trouble falling or staying asleep, or sleeping too much: not at all 4. Feeling tired or having little energy: not at all 5. Poor appetite or overeating: not at all 6. Feeling bad about yourself - or that you are a failure or have let yourself or your family down: not at all 7. Trouble concentrating on things, such as reading the newspaper or watching television: not at all 8. Moving or speaking so slowly that other people could have noticed. Or the opposite - being so fidgety or restless that you have been moving around a lot more than usual: not at all 9. Thoughts that you would be better off or of hurting yourself in some way: not at all Total score: 0 Depression Screening Interpretation: Negative Depression Screening Done: Yes Source: Developed by Drs. Avi Pulliam, Ni Espana, Don Bates and colleagues, with an educational guy from [employer]. Thrive Questionnaire Date Thrive assessed: 07/29/25 I am a: Patient What is your living situation today?: I have a steady place to live Within the past 12 months, did the food you bought not last and you didn't have the money to get more?: Never true Within the past 12 months, did you worry whether your food would run out before you got money to buy more?: Never true Do you have trouble paying for medicines?: No Do you have trouble getting transportation to medical appointments?: No Do you have trouble paying your heating and electricity bill?: No Do you have trouble taking care of your child, family member or friend?: No Do you have trouble with day-to-day activities such as bathing, preparing meals, shopping, managing finances, etc.?: No Are you currently unemployed and looking for a job?: I choose not to answer this question Are you interested in more education?: No Please select the resources that you would like help with: None Currently or been in a relationship where the following occur: No concerns reported THRIVE Score: 0 AUDIT C Alcohol Use Questionnaire (AUDIT-C) 1. How often do you have a drink containing alcohol?: 2-3 times a week 2. How many drinks containing alcohol do you have on a typical day when you are drinking?: 3 or 4 3. How often do you have six or more drinks on one occasion?: Never Total Score: 4 LUIZ-7 AMB Questionnaire LUIZ-7 Date LUIZ - 7 assessed: 07/29/25 Feeling nervous, anxious, or on edge: 0 = Not at all Not being able to stop or control worryin = Not at all Worrying too much about different things: 0 = Not at all Trouble relaxin = Not at all Being so restless that it is hard to sit still: 0 = Not at all Becoming easily annoyed or irritable: 0 = Not at all Feeling afraid as if something awful might happen: 0 = Not at all Total LUIZ-7 score (0-4 normal; 5-9 mild; 10-14 moderate; 15-21 severe): 0 Source: Developed by Drs. Avi Pulliam, Ni Esapna, Don Bates and colleagues, with an educational guy from [employer]. Review of Systems Const Denies headache(s) Eyes Denies loss of vision ENT Denies vertigo, Denies dizziness, Denies headache(s) and Denies sore throat Card Denies chest pain, Denies leg edema and Denies lightheadedness Resp Denies cough, Denies hemoptysis and Denies wheezing GI Denies abdominal pain, Denies melena, Denies constipation, Denies diarrhea and Denies vomiting Denies urinary frequency, Denies dysuria and Denies urinary urgency Musc Denies arthralgias, Denies joint swelling, Denies numbness and Denies tingling Neuro Denies Abnormal speech present, Denies behavioral changes, Denies vertigo, Denies dizziness, Denies headache(s), Denies loss of vision, Denies memory loss, Denies numbness and Denies tingling Psych Denies anxiety, Denies behavioral changes, Denies depression, Denies memory loss and Denies panic attacks Mohsen/Lymph Denies easy bleeding and Denies easy bruising Aller/Immun Denies wheezing Physical exam (Primary Care) Vital Signs: Last Vital Signs Temp 97.5 F 07/29/25 09:37 Pulse 98 07/29/25 09:37 BP 148/70 H 07/29/25 09:37 Pulse Ox 96 07/29/25 09:37 Oxygen Delivery Method Room Air 07/29/25 09:37 BMI result Body Mass Index 22.2 Tobacco/Smoking Status: Tobacco use Status Tobacco use date assessed 07/29/25 07/29/25 09:37 Patient Tobacco Use Status Former Tobacco user 07/29/25 09:37 Tobacco use type Cigarette 07/29/25 09:37 e-Cigarette/Vaping Use Never Used 07/29/25 09:37 PHQ-9: PHQ-9 Score PHQ-9: Total score 0 08/26/25 07:29 Depression Screening Interpretation: Negative Thrive Assessment: Date of Thrive Assessment Date Thrive assessed 07/29/25 07/29/25 09:37 Currently or been in a relationship where the following occur: No concerns reported Const General: healthy appearing, no acute distress, alert and awake Nutritional Appearance: well nourished Orientation/consciousness: oriented to person, oriented to place and oriented to time HENMT Ears: TM's normal bilaterally General nose exam: Normal nasal mucous membranes and turbinates present Eyes Conjunctivae: conjunctivae normal Sclerae: sclerae normal Pupils: Equal, round and reactive pupils present Neck Neck: Yes no lymphadenopathy and Yes no JVD Thyroid: Thyroid normal Carotids: no bruits Resp Effort & Inspection: normal respiratory effort and not tachypneic Auscultation: no crackles, no rales, no rhonchi and no wheezes Cardio Rate: regular rate Rhythm: regular rhythm Heart sounds: no murmurs and normal S1 and S2 GI Palpation (GI): Soft to palpation, nontender, no hepatomegaly and no splenomegaly Auscultation: normal bowel sounds Skin General skin exam: no rashes or lesions noted and dry skin Neuro General: oriented to person, oriented to place and oriented to time Cranial nerves: Yes Equal, round and reactive pupils present Speech: No Abnormal speech present Gait exam (Neuro): Normal gait present Motor exam (neuro): no tremor noted Extrem Right upper extremity: full ROM Left upper extremity: full ROM Right lower extremity: full ROM; no edema Left lower extremity: full ROM; no edema Psych Mental Status: mental status grossly normal Speech and movement: Normal speech and movement present Affect: normal affect Attitude: cooperative Thought process: Normal thought process present Coding Level of Care Code Est Pt Level 3 (09358) Diagnoses Pre-op examination Z01.818 Assessment & Plan Assessment & Plan (1) Pre-op examination: Code(s): Z01.818 - Encounter for other preprocedural examination Category: Medical Plan: The patient's elevated blood pressure is assessed to be situational, secondary to significant personal stress and white coat hypertension, given the patient's report of a normal baseline blood pressure. Pharmacological intervention is not indicated as the stress is considered temporary. For pre-operative clearance for the dental implant surgery, non-fasting labs, including a metabolic panel to check kidney and liver function, and an EKG will be obtained. The orders for these tests are already in the system. Dental office Phone:? Orders: Orders XR chest 2V 08/05/25 Z01.818 - Encounter for other preprocedural examination
[2025-07-29 09:37] VITALS: BP 148/70; PULSE 98; TEMP 36.4; O2SAT 96; BMI 22.2
== END 2025-07-29 10:03 | disposition home or self-care (01) ==
PROVIDERS: PCP Physician Assistant; Visit Provider Physician Assistant
DX: Z01.818 Encounter for other preprocedural examination (principal)